=== PATIENT | female | born 1945 | race Caucasian/White ===

== ENCOUNTER 2016-11-29 09:34 | Inpatient (IN) | payer MEDICARE ==
[~2016-11-29] VITALS: Ht 167.6 cm; Wt 89.4 kg
[~2016-11-29 09:34] MED LIST: COUM2.5T17 PO; PERCOCET PO; TYLE325T5 PO; no home meds
[2016-11-29] MEDS ORDERED: ALEV220C2 PO (09:41)
[2016-11-29] MEDS ORDERED: METOPROLOL TART 25 MG TABLET PO ONE (10:00)
[2016-11-29] MEDS: METOPROLOL 5 MG/5 ML VIAL IV SCH ×16 (10:18→11:30)
[2016-11-29 10:41] LABS: BASO % 0.5 % (0.0-1.0); EOS # 0.1 K/mm3 (0.0-0.50); EOS % 1.5 % (0.0-3.0); LARGE UNSTAINED CELL # 0.1 K/mm3 (0.0-0.4); LARGE UNSTAINED CELL % 1.1 % (0.0-4.0); LYMPH # 0.9 K/mm3 (1.5-4.5); LYMPH % 9.3 % (24.0-44.0); MEAN CORPUSCULAR HEMOGLOBIN 31.5 pg (27.0-33.0); MEAN CORPUSCULAR HGB CONC 32.8 g/dl (32.0-36.5); MEAN CORPUSCULAR VOLUME 96.1 fl (80.0-96.0); MONO # 0.3 K/mm3 (0.0-0.8); MONO % 3.7 % (0.0-5.0); NEUTROPHILS # 7.5 K/mm3 (1.8-7.7); NEUTROPHILS % 83.8 % (36.0-66.0); PLATELET COUNT, AUTOMATED 219 k/mm3 (150-450); RED CELL DISTRIBUTION WIDTH 12.5 % (11.5-14.5)
[2016-11-29 11:08] LABS: ALBUMIN 3.1 GM/DL (3.2-5.2); ALBUMIN/GLOBULIN RATIO 0.97 (1.00-1.93); ALKALINE PHOSPHATASE 182 U/L (45-117); ALT/SGPT 37 U/L (12-78); ANION GAP 10 MEQ/L (8-16); AST/SGOT 20 U/L (15-37); BILIRUBIN,DIRECT 0.1 MG/DL (0.0-0.2); BILIRUBIN,TOTAL 0.6 MG/DL (0.2-1.0); BLOOD UREA NITROGEN 20 MG/DL (7-18); CALCIUM LEVEL 8.3 MG/DL (8.8-10.2); CARBON DIOXIDE LEVEL 24 MEQ/L (21-32); CHLORIDE LEVEL 108 MEQ/L (98-107); CREATININE FOR GFR 1.19 MG/DL (0.55-1.02); FREE T4 1.23 NG/DL (0.76-1.46); GLOMERULAR FILTRATION RATE 47.9 (>45); GLUCOSE, FASTING 118 MG/DL (80-110); POTASSIUM SERUM 4.3 MEQ/L (3.5-5.1); SODIUM LEVEL 142 MEQ/L (136-145); TOTAL PROTEIN 6.3 GM/DL (6.4-8.2)
[2016-11-29] MEDS ORDERED: NS 500 ML IV ONE ×2 (11:15→13:15)
--- NOTE | 2016-11-29 11:22 | REP ---
Clinical: chest pain. Comparison: 12/28/2013. Findings: The mediastinum and cardiac silhouette are stable and within normal limits for portable technique. The lung herrmann are clear without acute consolidation, effusion, or pneumothorax. Skeletal structures are intact. Impression: No acute cardiopulmonary process appreciated. Signed by Praveen Arroyo MD 11/29/2016 11:13 A
[2016-11-29 11:24] LABS: ERYTHROCYTE SEDIMENTATION RATE 24 mm/hr (0-30)
[2016-11-29] MEDS ORDERED: ISOVUE-370 76% 100ML VIAL (Q9967) As Ordered ONE (14:14)
[2016-11-29] MEDS ORDERED: ONDANSETRON 4MG/2ML VIAL (J2405) IV PRN (14:30)
[2016-11-29] MEDS ORDERED: BISACODYL 5 MG TAB PO PRN (14:30)
--- NOTE | 2016-11-29 15:15 | REP ---
Clinical: Atrial fibrillation and acute chest pain. Technique: Axial contrast enhanced images from the thoracic inlet to the upper abdomen using 100 ml Isovue 370 intravenous contrast material with coronal and sagittal re-formations. Findings: Satisfactory enhancement of the pulmonary vasculature is achieved and no filling defects are identified to suggest pulmonary embolus. Thoracic aorta is normal caliber without aneurysm or dissection. Heart and pericardium are normal. Lung herrmann demonstrate moderate emphysematous changes and chronic interstitial changes without focal consolidation, pleural effusion, pneumothorax, nodule or mass lesion. Tracheobronchial tree is patent. No adenopathy. Impression: No evidence for pulmonary embolus. Normal thoracic aorta. Moderate emphysematous and interstitial changes. No acute pleuroparenchymal process. Signed by Praveen Arroyo MD 11/29/2016 03:06 P
[2016-11-29 15:30] VITALS: BP 147/69
--- NOTE | 2016-11-29 17:26 | HPE ---
DATE OF ADMISSION: 11/29/2016 CHIEF COMPLAINT: 71-year-old female coming in complaining of "feeling not well. " HISTORY OF PRESENT ILLNESS: This is a 71-year-old female with no significant past medical history who resides at [facility] and does not see any imaging analyst, who presents complaining of feeling "not feeling well for a few days," who was out camping around [place]. Patient states that she had no acute precipitating factor such as fever, chills, cough, sputum production, abdominal pain, diarrhea , dysuria, chest pain, shortness of breath, nausea, vomiting, or dizziness that brought her into the emergency room. But, she did go camping and had not felt well, therefore came to the emergency room. She developed some nonblanching salmon color macule on her upper extremity prior to her camping but no acute finding but she came in because she did not feel well for a few days. She also informed me that she went camping due to a family member insisting on her going camping, but she was well enough to go camping, but generally did not feel completely well, therefore she came to the emergency room for further evaluation. In the emergency room, patient was noted to be in atrial fibrillation with heart rate of 137, received metoprolol IV in addition to by mouth 25 mg metoprolol. Her blood pressure became soft and systolic at 90, therefore patient is being admitted for further evaluation and treatment. Patient is currently asymptomatic. No chest pain, dizziness, or shortness of breath. Able to provide history and cooperated with physical examination without any difficulty. Patient does have some multiple nonblanching salmon colored skin patches discoloration on her upper extremity she states that has been occurring prior to her going camping as well. Patient again denies any medical history, did not even know that she was in atrial fibrillation until it was told to her by the emergency room staff. Patient also mentioned that she has very minimal pitting edema up to her ankle, worse throughout the day, but improves after elevating her foot and sleeping at night. Denies any calf pain. REVIEW OF SYSTEMS: Ten point review of systems is negative other than described in the history of present illness (HPI). PAST MEDICAL HISTORY: None. SURGICAL HISTORY: Includes knee surgery and hip surgery. SOCIAL HISTORY: Patient does smoke one pack a day and has been doing so for the past 50 years. Occasionally drinks wine and vodka on social occasions and during holidays, but not dependent on them. Denies any IV drug abuse. FAMILY MEDICAL HISTORY: Nonsignificant. ALLERGIES: Patient has no known drug allergies. MEDICATIONS: From home: - she takes Aleve 220 mg two tablets nightly as needed In terms of physical examination, I have asked the emergency room (ER) staff to obtain repeat vital signs as last blood pressure initially when she came in was 87/62 and the repeat was 90/58, heart rate was 90 and 94, saturating 95-94%. It seems like her blood pressure has improved to 118/56, but she does have a fever of 102.3, a heart rate of 88, respiratory rate of 18, and saturating at 96% on room air, but on my examination in the emergency room she did not feel as she had a significant fever of 102.3, I will verify with the ER staff regarding that temperature as patient was asymptomatic in terms of fever downstairs. HEENT: Normocephalic. No trauma. Inspection of the eyes, nose, and throat is within normal. Pupils equal, round, and reactive to light and accommodation. Mucous is moist. Neck is supple. CARDIAC: S1, S2, irregularly irregular. Pulses present. LUNGS: Equal air entry. Did not hear any wheezes, rales, or rhonchi. ABDOMEN: Soft, nontender. Bowel sounds present. LOWER EXTREMITIES: No significant pitting edema. Capillary refill present in all four extremities. SKIN: Is intact, warm to touch, afebrile. Upper extremities salmon-color macules. The patient is currently awake, alert and oriented times three. Cranial nerves grossly intact. Motor and sensory is intact. Normal mood and affect for current situation. DIAGNOSTIC STUDIES: Patient did get a CTA of the chest upon my request which showed no evidence for pulmonary embolus, normal thoracic aorta, moderate emphysematous and interstitial changes. No acute pleural parenchymal process. LABORATORY STUDIES: WBC, hemoglobin and hematocrit, and platelet count is within normal. Complete metabolic profile is within normal except for chloride at 108, BUN of 20, creatinine of 1.19, glucose is 118, calcium is 8.3, alkaline phosphatase is 182. Her lactic acid is 1.9. Cardiac enzymes have been within normal. C-reactive protein is elevated at 2.68. BNP is 152. Total protein is 6.3, albumin is 3.1. Free T4 is within normal, TSH is within normal. Coagulation studies: PTT is 22.4. Urinalysis is negative for a urinary tract infection, but did show 1+ protein and 4 red blood cell count. Lyme disease immunoglobulin is pending at this time. Blood culture times two is pending. Chest x-ray as per radiology showed no acute cardiopulmonary process. ASSESSMENT AND PLAN: This is a 71-year-old female with no significant past medical history who resides at [facility], denies of any cardiac history or a imaging analyst, who was well enough to go camping with family member, but did not feel well and noted a rash on her upper extremity prior to camping but subsequently became feeling unwell as she was camping, therefore came to the emergency room and was noted to have atrial fibrillation. 1. Atrial fibrillation. Patient will be monitored on telemetry. Will get serial cardiac enzymes. CTA of the chest was negative for pulmonary embolus. TSH within normal. Will obtain echocardiogram for further evaluation. CHADS2 score preliminary-nettles of zero but we will await for echocardiogram for further evaluation for any diagnosis of heart failure. Patient also requests that medication regarding anticoagulation therapy be limited to perhaps aspirin as patient is on Medicare. I have explained to the patient about the risk of transient ischemic attack (TIA) or stroke with comorbidities of atrial fibrillation. At this time we will rate control her as her heart rate tolerates , as her blood pressure did go down with a beta carolina that was given to her in the emergency room. Will utilize digoxin if necessary, give her IV fluid judiciously. Patient will speak to the [facility] hospitalist regarding anticoagulation therapy based on echocardiogram finding. 2. Upper extremity nonblanching skin finding. [place]-colored macules. Chronic prior to her camping exposure. Lyme study is still pending. Patient does have a fever of 102 noted in the emergency room, but on my examination she did not have any signs of fever, did not feel warm. Will verify with the staff in the emergency room regarding the temperature of 102. If it is truly indeed a correct temperature reading, will continue to workup for infectious process and treat symptoms and provide supportive care. 3. Soft blood pressure. Improved with IV fluids. Judicious use of metoprolol. Try to rate control with beta carolina or Cardizem. If blood pressure is effected, may need digoxin. Cardiology consult as needed and [facility]. 4. Renal insufficiency. IV fluids and continue to monitor. 5. Smoking cessation. Nicotine patch offered. 6. Deep venous thrombosis (DVT) prophylaxis. Addendum: Spoke to staff and was informed repeat temperature 98.9. But in light of reviewing the chart there is a new documentation of temperature 100.1 prior to 102.3 that was not there before. Spoke to on-coming Hospitalist, infectious disease workup including tic mirna illness is being evaluated. JAN
[2016-11-29] MEDS: NS 1,000 ML IV SCH (17:38)
[2016-11-29] MEDS: NICOTINE 14 MG/24 HR TRANSDERMAL TD SCH (18:49)
[2016-11-29] MEDS: ACETAMINOPHEN TAB 650MG DOSE (2X325MG) PO PRN (19:50)
[2016-11-29 20:00] VITALS: BP 137/61
[2016-11-29] MEDS: HEPARIN SOD (PORCINE) 5000 UNITS/ML VIAL SC SCH (22:00)
[2016-11-29 23:59] VITALS: BP 119/56
[2016-11-30 04:00] VITALS: BP 120/57
[2016-11-30] MEDS: HEPARIN SOD (PORCINE) 5000 UNITS/ML VIAL SC SCH ×3 (05:34→21:46)
[2016-11-30] MEDS: NS 1,000 ML IV SCH ×2 (05:34→18:05)
[2016-11-30 06:13] LABS: MEAN CORPUSCULAR HEMOGLOBIN 31.4 pg (27.0-33.0); MEAN CORPUSCULAR HGB CONC 32.5 g/dl (32.0-36.5); MEAN CORPUSCULAR VOLUME 96.7 fl (80.0-96.0); RED CELL DISTRIBUTION WIDTH 12.5 % (11.5-14.5); WHITE BLOOD COUNT 6.1 K/mm3 (4.0-10.0)
[2016-11-30 06:38] LABS: CALCIUM LEVEL 7.9 MG/DL (8.8-10.2); CREATININE FOR GFR 1.04 MG/DL (0.55-1.02); GLOMERULAR FILTRATION RATE 55.9 (>45)
--- NOTE | 2016-11-30 07:23 | ECGEPIP ---
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
[2016-11-30 08:00] VITALS: BP 137/65
[2016-11-30] MEDS: NICOTINE 14 MG/24 HR TRANSDERMAL TD SCH (08:21)
[2016-11-30] MEDS: ACETAMINOPHEN TAB 650MG DOSE (2X325MG) PO PRN ×3 (08:22→21:47)
[2016-11-30 12:00] VITALS: BP 140/66
[2016-11-30 14:25] LABS: COMPLEMENT C4 20.4 MG/DL (10-40)
[2016-11-30 16:00] VITALS: BP 142/82
[2016-11-30 20:00] VITALS: BP 145/62
--- NOTE | 2016-11-30 20:58 | IPN ---
DATE: 11/30/2016 SUBJECTIVE: The patient seen and examined in the room today. The patient is still having intermittent fevers. According to the patient, since two weeks ago, the patient started having shivering chills and since a few days ago she started developing a generalized rash. Never had a similar episode in the past. VITAL SIGNS: Temperature is 97.3, pulse is 95, respirations 18, blood pressure 137/65, pulse oximetry 94% on room air. GENERAL: No sign of acute distress. Alert and oriented times three. HEENT: Normocephalic, atraumatic. Extraocular movements grossly intact. CARDIOVASCULAR: Irregularly irregular heart rate in satisfactory range. RESPIRATORY: Clear to auscultation bilaterally. ABDOMEN: Soft, nontender, nondistended. Bowel sounds present. No rebound. No guarding. EXTREMITIES: No edema, no sign of cyanosis. DERMATOLOGICAL: The patient has scattered macular rash, nonpruritic. No active drainage and the rash distributes throughout her whole body. LABORATORY DATA: WBC is 6.1, hemoglobin 11.8, hematocrit 36.3, platelet count is 193. Sodium 144, potassium 4, chloride is 113. Carbon dioxide 33, BUN 17, creatinine 1.04. GFR is 55.9. Fasting glucose 116. Calcium 7.9. Total CK 36. Troponin I is less than 0.02. C-reactive protein is 2.62. ASSESSMENT AND PLAN: 1. Atrial fibrillation. The patient's current heart rate is in the satisfactory range. The patient does not have any past medical history. Cardiac echogram was ordered. CHADS2 score is 0. Will continue to monitor patient. 2. Generalized macular rash. Etiology unknown at this moment. Rule out any possible infectious cause and also workup for autoimmune disease, and also vasculitis workup. I will consult the infectious disease specialist, Dr. Joy. 3. Acute kidney injury. The patient has a creatinine of 1 in 2014. On admission, the patient had a creatinine of 1.19. With medical management, the patient's creatinine is improving, almost back to her baseline. 4. Intermittent fever and chills. Will try to rule out any possible infectious causes. Surprisingly, the patient's white count and erythrocyte sedimentation rate are within normal range. 5. History of smoking. CT of the chest did not show any significant findings. The patient is on nicotine patch. 6. Deep venous thrombosis (DVT) prophylaxis. The patient is on heparin.
[2016-11-30] MEDS: zolPIDEM TARTRATE 5 MG TAB PO PRN (21:46)
[2016-11-30] MEDS: DOXYCYCLINE HYCLATE 100 MG TAB PO SCH (21:46)
--- NOTE | 2016-11-30 22:35 | CR ---
DATE: 11/30/2016 Asked to consult by Dr. Bruce for evaluation of fever and rash. HISTORY OF PRESENT ILLNESS: Mrs. Betts is a pleasant 71-year-old female who had not been feeling well for about 3 weeks prior to admission. She had been camping at [facility] wit her family for 1 day and was supposed to be going to [place] next week but was not feeling well. She was having a fever and just had myalgias, not feeling herself, so she went to an Urgent Care where she was noted to be in atrial fibrillation with rapid ventricular response and, therefore, was sent to the emergency room by ambulance. The patient states she had no cough, no nausea, vomiting or diarrhea. No abdominal pain, no chest pain or shortness of breath. She had no palpitations. She had been 3 weeks ago cleaning brush at her daughter's house in [place] and she lives in [facility]. She denied having a tick bite but had noticed that she has had nonblanching macular rash on upper and lower extremities. In the emergency room, she was in atrial fibrillation with a heart rate of 140. She was given IV metoprolol, and she was spiking fevers up to 103. She feels well other than malaise. She states she has chronic low back pain, which is unchanged. She has no arthritis or arthralgias. Past medical history of tobacco abuse and chronic low back pain for which she takes Aleve. PAST SURGICAL HISTORY: Knee surgery and right hip open reduction internal fixation in 2013 playing football with her grandson. SOCIAL HISTORY: She smokes a pack of cigarettes a day for the past 50 years. She drinks socially wine or vodka but not regularly. No IV drug use. She lives in an adjoining apartment to her daughter and son-in-law and they have a dog. She does not have dogs. They live in [place], and she is outdoors, does help in outdoor activities. ALLERGIES: No known drug allergies. MEDICATIONS: - Aleve at home Currently on: - Ambien 2.5 mg by mouth nightly as needed - heparin subcutaneously 5000 units every 8 hours - ibuprofen 400 mg every 6 hours as needed - Tylenol as needed - Zofran 4 mg IV every 6 hours as needed - nicotine patch one patch daily. LABORATORY DATA: White count was normal, currently 6.1, hemoglobin 11.8, hematocrit 36.3, platelets 193. ESR 22. Sodium 144, potassium 4, chloride 113, bicarbonate 23, BUN 17, creatinine 1.04, glucose 116, calcium 7.9, CPK 36, troponin less than 0.02 times three and CRP 2.62. Lyme serology is pending. OSBALDO, ANCA are pending. Complement levels C4 is 20.4. Hepatitis A, B C, HIV are pending. AST 20, ALT 37, alkaline phosphatase 182. IMAGING STUDIES: CT angiogram showed no evidence of pulmonary embolism (PE), normal thoracic aorta, moderate emphysema and interstitial changes. No acute process. Chest x-ray showed no acute infiltrate. On physical exam, temperature is 100.8, pulse 93, respirations 18, blood pressure 142/82, oxygen saturation 96% on room. Maximum temperature (T max) was yesterday of 103.1. Heart: Normal S1, S2, irregular with no murmurs, rubs or gallops. Lungs are clear. No wheezes, rales or rhonchi. Abdomen: Obese, soft, nontender. No hepatosplenomegaly. Back: No costovertebral angle tenderness or lumbosacral tenderness. Extremities: No clubbing, cyanosis or edema. No calf tenderness. Skin: Has multiple blanching macular rash, some are confluent, upper chest, abdomen, thighs and arms. She has a few petechial-looking rash on the left foot. Musculoskeletal: Normal range of motion. No acute synovitis. No joint tenderness. Normal range of motion knees and ankle. Neck is supple. No jugular venous distention (JVD). No carotid bruits with no stiffness. Oropharynx is clear with no thrush. Pupils equal and reactive, anicteric with no conjunctival lesions. IMPRESSION: This is a 71-year-old female who has not been feeling well for the past few weeks. She lives in [place] and had been clearing brush at her daughter's house 3 weeks ago. She has a fever, macular rash, which is suggestive of possible early disseminated Lyme disease and developed atrial fibrillation, probably triggered by a fever. She has no significant past medical history except for tobacco abuse and chronic low back pain. The patient is clinically stable. PLAN: Lyme serology has been obtained. Hepatitis A, B, C and HIV has been obtained, although she does not have abnormal liver function tests. Suggest starting doxycycline 100 mg by mouth twice a day while waiting for Lyme serology. If the patient is stable from a cardiac standpoint, she could be discharged to be followed up as an outpatient with doxycycline for a total of 3 weeks. The patient also was advised side effect of nausea, vomiting and severe photosensitivity, especially if she is planning to go camping to avoid being in direct sun, being outside between 12 and 3 and to use sunscreen, [id number]. MTDD
[2016-11-30 23:59] VITALS: BP 137/62
[2016-12-01] VITALS (7 sets, daily range): BP systolic 102–140; BP diastolic 54–86
[2016-12-01] MEDS: ACETAMINOPHEN TAB 650MG DOSE (2X325MG) PO PRN (02:01)
[2016-12-01] MEDS: IBUPROFEN 400 MG TAB PO PRN ×3 (05:02→21:13)
[2016-12-01] MEDS: HEPARIN SOD (PORCINE) 5000 UNITS/ML VIAL SC SCH ×3 (05:57→21:13)
[2016-12-01] MEDS: NS 1,000 ML IV SCH (06:19)
[2016-12-01 06:20] LABS: MEAN CORPUSCULAR HEMOGLOBIN 31.6 pg (27.0-33.0); MEAN CORPUSCULAR VOLUME 95.6 fl (80.0-96.0); RED CELL DISTRIBUTION WIDTH 12.6 % (11.5-14.5); WHITE BLOOD COUNT 9.7 K/mm3 (4.0-10.0)
[2016-12-01 06:30] LABS: CALCIUM LEVEL 7.8 MG/DL (8.8-10.2); CREATININE FOR GFR 1.01 MG/DL (0.55-1.02); GLOMERULAR FILTRATION RATE 57.9 (>45)
[2016-12-01 08:06] LABS: Lyme Disease IgG Ab 18 kDa Ban Present (.); Lyme Disease IgG Ab 23 kDa Ban Present (.); Lyme Disease IgG Ab 28 kDa Ban Absent (.); Lyme Disease IgG Ab 30 kDa Ban Absent (.); Lyme Disease IgG Ab 39 kDa Ban Present (.); Lyme Disease IgG Ab 41 kDa Ban Present (.); Lyme Disease IgG Ab 45 kDa Ban Present (.); Lyme Disease IgG Ab 58 kDa Ban Present (.); Lyme Disease IgG Ab 66 kDa Ban Absent (.); Lyme Disease IgG Ab 93 kDa Ban Absent (.); Lyme Disease IgG West Blot Int Positive (.); Lyme Disease IgG/IgM Antibodie 1.94 ISR (0.00-0.90); Lyme Disease IgM Ab 23 kDa Ban Present (.); Lyme Disease IgM Ab 39 kDa Ban Absent (.); Lyme Disease IgM Ab 41 kDa Ban Present (.); Lyme Disease IgM Ab Quantitati 5.65 index (0.00-0.79); Lyme Disease IgM West Blot Int Positive (.)
[2016-12-01] MEDS: NICOTINE 14 MG/24 HR TRANSDERMAL TD SCH (08:20)
[2016-12-01] MEDS: DOXYCYCLINE HYCLATE 100 MG TAB PO SCH ×2 (08:20→21:11)
[2016-12-01] MEDS ORDERED: METOPROLOL TART 12.5 MG PER 1/2 TAB PO SCH (09:00)
--- NOTE | 2016-12-01 17:59 | IPN ---
DATE: 12/01/2016 SUBJECTIVE: The patient is seen and examined in the room today. The patient still has intermittent fevers. The patient stated the rash has been persistent. No change in size. The patient still complains of palpitations. OBJECTIVE: VITAL SIGNS: Temperature is 98.7, pulse is 110, respirations 18, blood pressure 102/56, pulse oximetry is 96% in room air. GENERAL: No sign of acute distress. Alert and oriented times three. HEENT: Normocephalic, atraumatic. Extraocular motor grossly intact. CARDIOVASCULAR: Irregularly irregular with a heart rate greater than 100. LUNGS: Clear to auscultation bilaterally. ABDOMEN: Soft, nontender, nondistended. Bowel sounds present. No rebound, no guarding. DERMATOLOGICAL: Multiple scattered macular rash, nonpruritic, throughout her whole body and no active drainage. EXTREMITIES: No edema, no sign of cyanosis. LABORATORY DATA: WBC is 9.7, hemoglobin 11.5, hematocrit 34.9, platelet count is 187. Sodium is 141, potassium 4, chloride is 112, carbon dioxide 21, BUN 14, creatinine 1.01, GFR is 57.9, fasting glucose 135, calcium is 7.8. ASSESSMENT AND PLAN: 1. Atrial fibrillation. May be due to the patient's active Lyme disease infection. The patient has a heart rate persistently greater than 100. Will start metoprolol. Will adjust accordingly. The patient will continue to be monitored on telemetry. The patient's CHADS2 score is 0. 2. Generalized macular rash secondary to Lyme disease. The patient was started on doxycycline. Infectious disease specialist, Dr. Joy, has been consulted. Recommend a total of 21 days of doxycycline treatment. 3. Lyme disease. Titer came back positive. The patient is on doxycycline. 4. Acute kidney injury. Patient had a creatinine baseline of 1 in 2014. With fluid support, the patient's renal function is improving. 5. History of smoking. CT of the chest is negative. The patient is on a nicotine patch. 6. Deep vein thrombosis (DVT) prophylaxis. Heparin. MTDD
--- NOTE | 2016-12-01 19:07 | ECHO ---
DATE OF PROCEDURE: 12/01/2016 AGE: 71 GENDER: Female HEIGHT: 66 inches WEIGHT: 190 pounds BODY SURFACE AREA: 1.96 m2 PATIENT LOCATION: Inpatient, PCU, room 3219 REFERRING PHYSICIAN: Sara Brownlee MD INDICATION: Dependent edema. Atrial fibrillation. 2-D MEASUREMENTS: RV: 3.6 cm LV: 4.0 cm Septum: 1.1 cm Posterior wall: 1.1 cm Aortic root: 2.8 cm LA: 4.5 cm LVEF: 65 - 70% DOPPLER MEASUREMENTS: AV: 1.3 m/s LVOT: 0.82 m/s LVOT diameter: 1.8 cm MV-E: 120 Early mitral deceleration time: 151 m/s E prime: 8.6, E/E prime ratio: 14.5 PV: 0.8 m/s Pulmonary artery acceleration time: 102 ms RVSP: 49 mmHg IVC: 2.2 cm COMMENTS: Underlying atrial fibrillation with somewhat rapid ventricular response averaging 120 beats per minute (BPM). No intraventricular conduction disturbance. Mild to moderately dilated left atrium, but normal left ventricular size. Normal right atrium and right ventricular sizes but at least borderline increased inferior vena caval diameter. Left ventricle (LV) wall thickness was normal. On real-time imaging from the parasternal and apical projections left and right ventricular systolic function was hyperkinetic. Mildly thickened mitral annulus, but normal leaflet thickness and excursion with no posterior systolic buckling. Three equal size aortic cusps with mildly thickened cusp edges, but adequate cusp separation. Normal aortic root size. No apparent intracardiac mass or pericardial effusion. Color flow Doppler study taken from the parasternal and apical projections showed mild mitral and tricuspid, but no aortic insufficiency. Guided continuous wave Doppler of her aortic valve showed a normal peak systolic velocity against LV outflow tract obstruction. Pulsed and continuous wave Doppler of her LV inflow tract taken from the apical four-chamber projection showed normal diastolic filling velocities against mitral stenosis. There was only early diastolic/passive filling pattern as we would expect with atrial fibrillation. Using pulsed and tissue Doppler of her mitral annulus, her current estimated mean left atrial pressure was only mildly increased. Pulsed and continuous wave Doppler of her pulmonary trunk showed a normal peak systolic velocity against right ventricle (RV) outflow tract obstruction. Her pulmonary artery acceleration time was abbreviated suggestive of at least a mildly increased pulmonary vascular resistance. Guided continuous wave Doppler of her tricuspid valve allowed our estimation of her right ventricular systolic pressure (moderately increased). Her inferior vena cava was upper limits of normal to slightly dilated with reduced respiratory collapse in keeping with an elevated central venous pressure. CONCLUSIONS: Normal left ventricular size, wall thickness and hyperkinetic wall motion. Mild-moderately dilated left atrium with Doppler evidence to suggest at least mildly elevated mean left atrial pressure. Normal right ventricular size and contraction with Doppler evidence of moderate pulmonary hypertension. Normal right atrial size, but at least borderline increased inferior vena cava (IVC) diameter with reduced respiratory collapse suggestive of an elevated central venous pressure. Aortic valvular sclerosis without functional abnormality. Mild mitral annular calcification with mild insufficiency.
[2016-12-01] MEDS: zolPIDEM TARTRATE 5 MG TAB PO PRN (21:10)
[2016-12-01] MEDS: METOPROLOL TART 25 MG TABLET PO SCH (21:11)
--- NOTE | 2016-12-01 22:38 | IPN ---
DATE: 12/01/2016 SUBJECTIVE: Aggie is doing better today. She feels a little more energized. She only complains of increasing low back pain. OBJECTIVE: VITAL SIGNS: She has had low-grade fever this morning 100.5, currently 99.8. Pulse 93, respirations 18, blood pressure 109/54, oxygen saturation 96% on room air. HEART: Normal S1, S2, regular. LUNGS: Clear. No wheezes, rales or rhonchi. ABDOMEN: Soft, nontender. BACK: Mild lumbosacral tenderness. EXTREMITIES: No edema. SKIN: Has a faint macular rash diffusely involving her upper back, her back, abdomen, and arms and legs, but it is less bright than yesterday. LABORATORY DATA: White count is 9.7, hemoglobin 11.5, hematocrit 34.2, platelets 187. ESR 22. Sodium 141, potassium 4, chloride 112, bicarb 21, BUN 14, creatinine 1, glucose 135, calcium 7.8. Lyme serology was positive with positive IgM 5.65, 2/3 positive band, and 6/10 positive IgG band. Hepatitis A, B, C and HIV were all negative. IMPRESSION: 1. 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 The patient is doing slightly better with doxycycline. She will be treated for total of 21 days. The patient was advised to avoid being out in the sun as there is risk of photosensitivity. To use SPF 50 while camping. 2. Atrial fibrillation on metoprolol 25 mg by mouth twice a day 3. Low back pain on ibuprofen 400 mg every six hours as needed. Plan : provide the patient with heating pad and encourage ambulation. I would suggest discontinuing intravenous (IV) fluids and encourage ambulation today. Discussed also smoking cessation and avoidance of alcohol with antibiotics. Continue doxycycline total of 21 days. MTDD
[2016-12-02 04:00] VITALS: BP 127/68
[2016-12-02 05:10] LABS: MEAN CORPUSCULAR HEMOGLOBIN 31.9 pg (27.0-33.0); MEAN CORPUSCULAR VOLUME 96.6 fl (80.0-96.0); RED CELL DISTRIBUTION WIDTH 12.7 % (11.5-14.5); WHITE BLOOD COUNT 4.5 K/mm3 (4.0-10.0)
[2016-12-02 05:20] LABS: ANION GAP 7 MEQ/L (8-16); BLOOD UREA NITROGEN 19 MG/DL (7-18); CARBON DIOXIDE LEVEL 23 MEQ/L (21-32); CHLORIDE LEVEL 112 MEQ/L (98-107); CREATININE FOR GFR 0.93 MG/DL (0.55-1.02); GLOMERULAR FILTRATION RATE > 60.0 (>45); GLUCOSE, FASTING 116 MG/DL (80-110); POTASSIUM SERUM 4.2 MEQ/L (3.5-5.1); SODIUM LEVEL 142 MEQ/L (136-145)
[2016-12-02] MEDS: HEPARIN SOD (PORCINE) 5000 UNITS/ML VIAL SC SCH (05:48)
[2016-12-02 08:00] VITALS: BP 148/65
[2016-12-02] MEDS ORDERED: METO25TA4 PO (08:01)
[2016-12-02] MEDS ORDERED: DOXY100T2 PO (08:01)
[2016-12-02] MEDS: METOPROLOL TART 25 MG TABLET PO SCH (08:39)
[2016-12-02] MEDS: DOXYCYCLINE HYCLATE 100 MG TAB PO SCH (08:39)
[2016-12-02] MEDS: NICOTINE 14 MG/24 HR TRANSDERMAL TD SCH (08:40)
--- NOTE | 2016-12-02 15:31 | DSES ---
DATE OF ADMISSION: 11/29/2016 DATE OF DISCHARGE: 12/02/2016 PRIMARY CARE PROVIDER: In [place] CONSULTANTS: Infectious disease specialist, Dr. Carmela Joy. PROCEDURES: None. COMPLICATIONS: None. ADMISSION/DISCHARGE DIAGNOSES: 1. Lyme disease. 2. New-onset atrial fibrillation. 3. Generalized macular rash from Lyme disease. 4. Acute kidney injury. 5. History of tobacco abuse. HOSPITALIZATION COURSE: Patient is a 71-year-old female who presented to [facility] on 11/29/2016 for generalized discomfort. During admission process, patient was found to have atrial fibrillation with a CHADS2 score of 0. Patient was admitted to the progressive care unit (PCU) for cardiac telemetry. Labs and cultures were obtained. Patient was noted to have intermittent fever with normal erythrocyte sedimentation rate (ESR) and white blood cells (WBC). Later patient was started on doxycycline for patient's Lyme disease. Patient was also started on metoprolol for atrial fibrillation rate control. On 12/02/2016, patient was determined medically stable for discharge with recommendation to finish a total of 21-day course of doxycycline for the patient's Lyme disease. Patient is recommended to followup with primary care provider in [place] in 1-2 weeks. OBJECTIVE: VITAL SIGNS: Temperature is 99.2, pulse is 99, respiratory rate 18, blood pressure 148/65, pulse oximetry 93% in room air. LABORATORY DATA: WBC 4.5, hemoglobin 11.1, hematocrit 33.5, platelet count is 180, ESR is 22. Sodium is 143, potassium 4.2, chloride 112, carbon dioxide 23, BUN 19, creatinine 0.93, GFR greater than 60, fasting glucose is 116, calcium is 8. Immunology: ANCA pending. Lyme disease titer positive. Hepatitis panel negative. Microbiology: Blood cultures negative after 72 hours times two sets. IMAGING STUDIES: Chest x-ray showed no acute cardiopulmonary process. CT angiogram of the chest showed no evidence of pulmonary embolism (PE). Normal thoracic aorta. Moderate emphysematous and interstitial changes. No acute pleural parenchymal process. DISCHARGE MEDICATIONS: - doxycycline 100 mg by mouth twice a day for 19 more days - metoprolol titrate 25 mg by mouth twice a day - Aleve 440 mg by mouth as needed DISCHARGE INSTRUCTIONS: Discontinue line. Discharge home. Activity as tolerated. Diet as tolerated. Patient should finish a total of 21-day course of doxycycline for Lyme disease treatment. Patient is recommended to followup with primary care provider in 1-2 weeks. DISCHARGE TIME; Greater than 30 minutes. DISCHARGE CONDITION: Stable.
[2016-12-05 00:06] LABS: SJOGREN'S ANTI SS-A <0.2 AI (0.0-0.9); SJOGREN'S ANTI SS-B <0.2 AI (0.0-0.9)
== END 2016-12-02 09:23 | disposition home or self-care (01) | DRG 868 ==
LOC: M ED 09:34 → EDBD 09:34 → M ED INP 16:14 → M PCU 17:25
PROVIDERS: ADMIT Internal Medicine; ATTEND Internal Medicine
DX: A69.20 Lyme disease, unspecified (principal); N17.9 Acute kidney failure, unspecified; I48.91 Unspecified atrial fibrillation; F17.210 Nicotine dependence, cigarettes, uncomplicated; M54.5 Low back pain; E66.9 Obesity, unspecified

== ENCOUNTER → 2017-01-04 | Outpatient (REF) | payer MEDICARE ==
[~2017-01-04] MED LIST changes: +ALEV220C2 PO; +DOXY100T2 PO; +METO25TA4 PO
[2017-01-04 17:21] LABS: ALBUMIN 3.6 GM/DL (3.2-5.2); ALBUMIN/GLOBULIN RATIO 1.13 (1.00-1.93); BILIRUBIN,TOTAL 0.4 MG/DL (0.2-1.0); CALCIUM LEVEL 8.7 MG/DL (8.8-10.2); CREATININE FOR GFR 1.07 MG/DL (0.55-1.02); GLOMERULAR FILTRATION RATE 54.1 (>45); POTASSIUM SERUM 3.7 MEQ/L (3.5-5.1); TOTAL PROTEIN 6.8 GM/DL (6.4-8.2)
[2017-01-04 17:40] LABS: BASO # 0.1 K/mm3 (0.0-0.2); BASO % 0.9 % (0.0-1.0); EOS # 0.2 K/mm3 (0.0-0.50); EOS % 3.6 % (0.0-3.0); LARGE UNSTAINED CELL # 0.1 K/mm3 (0.0-0.4); LYMPH # 1.8 K/mm3 (1.5-4.5); LYMPH % 26.3 % (24.0-44.0); MEAN CORPUSCULAR HGB CONC 32.6 g/dl (32.0-36.5); MEAN CORPUSCULAR VOLUME 95.1 fl (80.0-96.0); MONO # 0.4 K/mm3 (0.0-0.8); NEUTROPHILS # 4.2 K/mm3 (1.8-7.7); NEUTROPHILS % 62.2 % (36.0-66.0); PLATELET COUNT, AUTOMATED 155 k/mm3 (150-450); WHITE BLOOD COUNT 6.7 K/mm3 (4.0-10.0)
== END ==
LOC: M SFHCCAPE 08:05
PROVIDERS: ATTEND Physician Assistant
DX: E78.1 Pure hyperglyceridemia (principal); R53.83 Other fatigue

== ENCOUNTER → 2017-06-06 | Outpatient (REF) | payer MEDICARE ==
[2017-06-06 18:38] LABS: ALBUMIN 3.7 GM/DL (3.2-5.2); ALBUMIN/GLOBULIN RATIO 1.19 (1.00-1.93); ALKALINE PHOSPHATASE 133 U/L (45-117); ALT/SGPT 38 U/L (12-78); ANION GAP 6 MEQ/L (8-16); AST/SGOT 26 U/L (7-37); BILIRUBIN,TOTAL 0.5 MG/DL (0.2-1.0); BLOOD UREA NITROGEN 26 MG/DL (7-18); CALCIUM LEVEL 8.9 MG/DL (8.8-10.2); CARBON DIOXIDE LEVEL 30 MEQ/L (21-32); CHLORIDE LEVEL 104 MEQ/L (98-107); CHOLESTEROL LEVEL 187 MG/DL (<200); CHOLESTEROL RISK RATIO 4.675 (<5); CREATININE FOR GFR 1.17 MG/DL (0.55-1.02); GLOMERULAR FILTRATION RATE 48.7 (>39); GLUCOSE, FASTING 107 MG/DL (83-110); HDL CHOLESTEROL 40 MG/DL (>40); LDL CHOLESTEROL 72.8 MG/DL (<100); NON-HDL-C 147 MG/DL; POTASSIUM SERUM 4.4 MEQ/L (3.5-5.1); SODIUM LEVEL 140 MEQ/L (136-145); TOTAL PROTEIN 6.8 GM/DL (6.4-8.2); TRIGLYCERIDES LEVEL 371 MG/DL (<150)
[2017-06-06 18:41] LABS: ESTIMATED AVERAGE GLUCOSE 120 MG/DL (60-110); HEMOGLOBIN A1c 5.8 %
[2017-06-06 19:11] LABS: BASO # 0.1 10^3/uL (0.0-0.2); BASO % 0.7 % (0.0-1.0); EOS # 0.3 10^3/uL (0.0-0.50); EOS % 3.8 % (0.0-3.0); HEMATOCRIT 48.3 % (36.0-47.0); HEMOGLOBIN 15.5 g/dl (12.0-16.0); IMMATURE GRANULOCYTE % 0.4 % (0-0); LYMPH # 1.8 10^3/uL (1.5-4.5); LYMPH % 24.3 % (24.0-44.0); MEAN CORPUSCULAR HEMOGLOBIN 30.9 pg (27.0-33.0); MEAN CORPUSCULAR HGB CONC 32.1 g/dl (32.0-36.5); MEAN CORPUSCULAR VOLUME 96.2 fl (80.0-96.0); MONO # 0.5 10^3/uL (0.0-0.8); NEUTROPHILS # 4.7 10^3/uL (1.8-7.7); NEUTROPHILS % 63.8 % (36.0-66.0); PLATELET COUNT, AUTOMATED 177 10^3/uL (150-450); RED BLOOD COUNT 5.02 10^6/uL (4.00-5.40); RED CELL DISTRIBUTION WIDTH 12.3 % (11.5-14.5); WHITE BLOOD COUNT 7.3 10^3/uL (4.0-10.0)
== END ==
LOC: M SFHCCAPE 08:42
DX: E78.1 Pure hyperglyceridemia (principal); R73.01 Impaired fasting glucose
CPT/HCPCS: 80053

== ENCOUNTER → 2018-03-27 | Outpatient (REF) | payer MEDICARE ==
[2018-03-27 12:42] LABS: BASO % 0.5 % (0.0-1.0); EOS # 0.2 10^3/uL (0.0-0.50); EOS % 3.8 % (0.0-3.0); HEMATOCRIT 45.1 % (36.0-47.0); HEMOGLOBIN 14.3 g/dl (12.0-15.5); IMMATURE GRANULOCYTE % 0.3 % (0-3.0); LYMPH # 1.7 10^3/uL (1.5-4.5); LYMPH % 26.7 % (24.0-44.0); MEAN CORPUSCULAR HEMOGLOBIN 30.5 pg (27.0-33.0); MEAN CORPUSCULAR HGB CONC 31.7 g/dl (32.0-36.5); MEAN CORPUSCULAR VOLUME 96.2 fl (80.0-96.0); MONO # 0.5 10^3/uL (0.0-0.8); MONO % 8.2 % (0.0-5.0); NEUTROPHILS # 3.9 10^3/uL (1.8-7.7); NEUTROPHILS % 60.5 % (36.0-66.0); PLATELET COUNT, AUTOMATED 195 10^3/uL (150-450); RED BLOOD COUNT 4.69 10^6/uL (4.00-5.40); WHITE BLOOD COUNT 6.4 10^3/uL (4.0-10.0)
[2018-03-27 12:59] LABS: ESTIMATED AVERAGE GLUCOSE 126 MG/DL (60-110)
[2018-03-27 13:13] LABS: ALBUMIN 3.2 GM/DL (3.2-5.2); ALBUMIN/GLOBULIN RATIO 1.03 (1.00-1.93); ALKALINE PHOSPHATASE 130 U/L (45-117); ALT/SGPT 42 U/L (12-78); ANION GAP 11 MEQ/L (8-16); AST/SGOT 26 U/L (7-37); BILIRUBIN,TOTAL 0.4 MG/DL (0.2-1.0); BLOOD UREA NITROGEN 21 MG/DL (7-18); CALCIUM LEVEL 8.5 MG/DL (8.8-10.2); CARBON DIOXIDE LEVEL 25 MEQ/L (21-32); CHLORIDE LEVEL 107 MEQ/L (98-107); CHOLESTEROL LEVEL 178 MG/DL (<200); CHOLESTEROL RISK RATIO 5.235 (<5); CREATININE FOR GFR 1.33 MG/DL (0.55-1.30); GLUCOSE, FASTING 109 MG/DL (70-100); HDL CHOLESTEROL 34 MG/DL (>40); LDL CHOLESTEROL 84 MG/DL (<100); NON-HDL-C 144 MG/DL; POTASSIUM SERUM 4.6 MEQ/L (3.5-5.1); SODIUM LEVEL 143 MEQ/L (136-145); TOTAL 25(OH) VITAMIN D 24.8 NG/ML (30.0-100.0); TOTAL PROTEIN 6.3 GM/DL (6.4-8.2); TRIGLYCERIDES LEVEL 298 MG/DL (<150)
== END ==
LOC: M SFHCCAPE 08:34
DX: D58.2 Other hemoglobinopathies (principal); E78.1 Pure hyperglyceridemia; R73.09 Other abnormal glucose; I10 Essential (primary) hypertension; E55.9 Vitamin D deficiency, unspecified
CPT/HCPCS: 84443

== ENCOUNTER → 2018-04-12 | Outpatient (CLI) | payer MEDICARE | LOC: M RAD 12:46 | DX: I70.8 Atherosclerosis of other arteries (principal); R42 Dizziness and giddiness | CPT/HCPCS: 93880 ==

== ENCOUNTER → 2018-05-17 | Outpatient (REF) | payer MEDICARE | LOC: M SFHCLERA 16:19 | DX: L72.0 Epidermal cyst (principal) | CPT/HCPCS: 87186 ==

== ENCOUNTER → 2018-06-03 | Outpatient (CLI) | payer MEDICARE ==
[2018-06-03 11:37] LABS: INR 1.59; PROTHROMBIN TIME 19.2 SECONDS (12.1-14.4)
== END ==
LOC: M LRY 08:10
PROVIDERS: ATTEND Internal Medicine Cardiovascular Disease
DX: I48.0 Paroxysmal atrial fibrillation (principal); Z79.01 Long term (current) use of anticoagulants

== ENCOUNTER → 2018-06-10 | Outpatient (CLI) | payer MEDICARE ==
[2018-06-10 12:03] LABS: INR 2.51; PROTHROMBIN TIME 27.6 SECONDS (12.1-14.4)
== END ==
LOC: M LRY 08:13
PROVIDERS: ATTEND Physician Assistant
DX: Z51.81 Encounter for therapeutic drug level monitoring (principal); Z79.01 Long term (current) use of anticoagulants; I48.0 Paroxysmal atrial fibrillation

== ENCOUNTER → 2018-08-05 | Outpatient (CLI) | payer MEDICARE ==
--- NOTE | 2018-08-05 12:09 | REP ---
LEFT KNEE, FIVE VIEWS: HISTORY: Pain. There is no acute fracture or dislocation. There is mild narrowing of the medial knee joint space and patellofemoral joint space. There is minimal narrowing of the lateral knee joint space. An osteophyte is present on the tibia. IMPRESSION: Degenerative change as described above. Electronically Signed by Paulie Escalona MD 08/05/2018 12:10 P
== END ==
LOC: M LRY 10:40
PROVIDERS: ATTEND Nurse Practitioner Family
DX: M17.12 Unilateral primary osteoarthritis, left knee (principal); M25.762 Osteophyte, left knee; M25.562 Pain in left knee
CPT/HCPCS: 73564; G0463

== ENCOUNTER → 2018-08-30 | Outpatient (CLI) | payer MEDICARE ==
--- NOTE | 2018-08-30 10:21 | REP ---
CT STUDY OF THE LEFT KNEE WITHOUT CONTRAST: HISTORY: Left knee pain and swelling. History of surgery. COMPARISON RADIOGRAPHS: August 05, 2018. CT FINDINGS: There is diffuse osteopenia. No focal bony destructive lesion is seen. There is mild osteoarthritic spurring of the lateral surface of the patella and the superior articular margin of patella. There is also some mild spurring at the superior pole patella at the quadriceps tendon insertion. There is mild medial and lateral tibial femoral spurring. No joint space narrowing is seen. There is a small quantity of joint effusion and a very small sliver of Lomeli's cyst is seen in the posterior popliteal soft tissues. No other soft tissue abnormality is appreciated. Minimal vascular calcification is noted. There is a normal fabella posterolaterally. There is no evidence to suggest loose body. There is a fairly large posteromedial spur extending from the tibial plateau. IMPRESSION: Osteoarthritis. Diffuse osteoporosis. Small joint effusion and Lomeli's cyst. Nonarticular patellar spurring at the quadriceps tendon insertion. No acute bony abnormality. Electronically Signed by Wilber Marshall MD 08/30/2018 01:32 P
== END ==
LOC: M RAD 07:25
PROVIDERS: ATTEND Nurse Practitioner Family
DX: M17.12 Unilateral primary osteoarthritis, left knee (principal); M81.0 Age-related osteoporosis without current pathological fracture; M71.22 Synovial cyst of popliteal space [Baker], left knee

== ENCOUNTER 2018-09-27 18:08 | Observation (INO) | payer MEDICARE ==
[~2018-09-27] VITALS: Ht 167.6 cm; Wt 96.2 kg
[2018-09-27] MEDS ORDERED: CHLO125TA PO (18:44)
[2018-09-27] MEDS ORDERED: ELIQ5TAB PO (18:44)
[2018-09-27] MEDS ORDERED: losartan PO (18:44)
[2018-09-27] MEDS ORDERED: tumeric PO (18:45)
[2018-09-27 19:21] LABS: BASO # 0.1 10^3/uL (0.0-0.2); BASO % 0.6 % (0.0-1.0); EOS # 0.3 10^3/uL (0.0-0.50); EOS % 3.1 % (0.0-3.0); HEMATOCRIT 27.4 % (36.0-47.0); HEMOGLOBIN 8.3 g/dl (12.0-15.5); LYMPH % 23.9 % (24.0-44.0); MEAN CORPUSCULAR HGB CONC 30.3 g/dl (32.0-36.5); MEAN CORPUSCULAR VOLUME 89.3 fl (80.0-96.0); MONO # 0.6 10^3/uL (0.0-0.8); MONO % 7.2 % (0.0-5.0); NEUTROPHILS # 5.5 10^3/uL (1.8-7.7); NEUTROPHILS % 64.8 % (36.0-66.0); PLATELET COUNT, AUTOMATED 225 10^3/uL (150-450); RED BLOOD COUNT 3.07 10^6/uL (4.00-5.40); WHITE BLOOD COUNT 8.5 10^3/uL (4.0-10.0)
[2018-09-27 19:42] LABS: CALCIUM LEVEL 8.1 MG/DL (8.8-10.2); CREATININE FOR GFR 1.36 MG/DL (0.55-1.30); GLOMERULAR FILTRATION RATE 40.8 (>39); POTASSIUM SERUM 3.9 MEQ/L (3.5-5.1)
--- NOTE | 2018-09-27 19:58 | ECGEPIP ---
Stationary ECG Study [facility] - ED Test Date: 2018-09-27 Pat Name: TEMITOPE BRANTLEY Department: Room: - Gender: F [employer] T[employer]: : 1945 Requested By: Jennifer Osorio Order Number: [id number] Reading MD: Jennifer Osorio Measurements Intervals [employer] Rate: 82 P: IA: 0 QRS: 6 QRSD: 92 T: 24 QT: 363 QTc: 424 Interpretive Statements ATRIAL FIBRILLATION ABNORMAL RHYTHM ECG LOW QRS VOLTAGE LIMB LEADS 11/29/[address] T WAVE CHANGES Electronically Signed On 09-27-2018 19:58:22 EDT by Jennifer Osorio
--- NOTE | 2018-09-27 21:18 | REP ---
CHEST, SINGLE VIEW: Single view of the chest is performed. There is no acute infiltrate. There is mild discoid atelectasis in the lung bases. Heart is normal in size and the mediastinal silhouette is unremarkable. IMPRESSION: No acute infiltrate. Electronically Signed by Ishaan Sevilla MD 09/28/2018 03:10 P
[2018-09-27] MEDS ORDERED: D5W/LR 1,000 ML IV SCH (21:30)
[2018-09-27] MEDS ORDERED: GOLYTELY SOLN 4000 ML BTL PO ONE (21:30)
[2018-09-27] MEDS ORDERED: MOM 30ML SUSPENSION UDC PO PRN (21:30)
[2018-09-27] MEDS ORDERED: MAALOX 30 ML SUSP *UDC PO PRN (21:30)
[2018-09-27] MEDS ORDERED: ACETAMINOPHEN TAB 650MG DOSE (2X325MG) PO PRN (21:30)
[2018-09-27] MEDS ORDERED: LOSA25TA14 PO (21:41)
[2018-09-27] MEDS ORDERED: TURM500C PO (21:41)
--- NOTE | 2018-09-27 22:05 | HPEPDOC ---
General Date of Admission September 27, 2018 at 18:09 Attending Physician: A Chief Complaint The patient is a 73-year-old female admitted with a reason for visit of Symptomatic Anemia. Source: Patient, Family Exam Limitations: No limitations Timing/Duration: This morning (around 1AM) Associated Symptoms: Shortness of breath History of Present Illness 73 yo female with PMH of A fib and lyme disease presents to [facility] due to private vehicle with SOB that started since 09/27/18 around 1AM. She reported that she feels SOB that started when she was sitting down after walking back from the restroom. She reported that her SOB is better when she sat up, and that she was able to sleep but required a few pillows. Reported increased b/l ankle swelling. Denies any melena, hematochezia, nausea, vomiting, lightheadedness, dizziness, cough, extremity weakness, numbness, tingling, or loss of sensation. Reported no other symptoms as mentioned pos above. She never had any colonoscopy before, reported no family hx of colon CA. Home Medications Scheduled Apixaban (Eliquis) 5 Mg Tablet, 5 MG PO BID, (Reported) Chlorthalidone (Chlorthalidone) 25 Mg Tablet, 12.5 MG PO DAILY, (Reported) Losartan Potassium (Losartan Potassium) 25 Mg Tablet, 12.5 MG PO QHS, (Reported) Turmeric/Turmeric Root Extract (Turmeric 500 mg Capsule) 1 Each Capsule, 500 MG PO QHS, (Reported) Allergies Coded Allergies: No Known Allergies (Unverified , 09/27/18) Past Medical History Medical History A. fib Lyme disease diagnosed about 3 yrs ago-fatigue Broken right hip Moderate pulmonary hypertension on prior echo Low back pain Surgical History Left knee torn meniscus 2007 Right hip broken screws, plate, colton 2013 Family History Significant Family History: Cancer (MOther-throat Ca and uterine CA), Heart disease (Father-CAD) Social History * Smoker: former Smoker (quit in October 2017) A-FIB/CHADSVASC A-FIB History Current/History of A-Fib/PAF?: Yes Review of Systems Constitutional: Reports: Fatigue; Denies: Chills, Fever, Weight Loss Pulmonary: Reports: Dyspnea; Denies: Pleuritic Chest Pain Cardiovascular: Reports: Orthopnea, Edema (in bilateral ankle); Denies: Chest Pain, Palpitations Gastrointestinal: Denies: Nausea, Vomiting, Abdominal Pain, Diarrhea, Constipation, Melena, Hematochezia Neurological: Denies: Weakness, Numbness, Incoordination Physical Examination General Exam: Positive: Alert, Cooperative, No Acute Distress, Mild Distress Eye Exam: Positive: Conjunctiva & lids normal; Negative: Sclera icteric, Ptosis ENT Exam: Positive: Atraumatic Neck Exam: Positive: Supple; Negative: JVD Chest Exam: Positive: Clear to auscultation, Normal air movement, Diminished (mildly diminished breath sounds b/l); Negative: Rales, Rhonchi, Wheezing Heart Exam: Positive: Rate Normal, Regular Rhythm, Normal S1, Normal S2; Negative: Murmurs Telemetry: Positive: No significant arrhythmia, Sinus; Negative: Atrial fibrillation Abdomen Exam: Positive: Normal bowel sounds, Other (no distention or guarding); Negative: Tenderness Extremity Exam: Positive: Edema (non-piutting edema in bilateral ankle and minimal edema in b/l calves), Normal pulses (b/l radial pulses present); Negative: Cyanosis Skin Exam: Positive: Nl turgor and temperature Neuro Exam: Positive: Normal Speech Psych Exam: Positive: Mental status NL, Mood NL, Memory Intact, Oriented x 3 Vital Signs Vital Signs Date Time Temp Pulse Resp B/P (MAP) Pulse Ox O2 Delivery O2 Flow Rate FiO2 09/27/18 21:23 90 18 95 Room Air 09/27/18 21:15 124/63 (83) 09/27/18 18:09 97.3 Laboratory Data Labs 24H Laboratory Tests 2 09/27/18 19:12: Immature Granulocyte % (Auto) 0.4, White Blood Count 8.5, Red Blood Count 3.07L, Hemoglobin 8.3L, Hematocrit 27.4L, Mean Corpuscular Volume 89.3, Mean Corpuscular Hemoglobin 27.0, Mean Corpuscular Hemoglobin Concent 30.3L, Red Cell Distribution Width 12.8, Platelet Count 225, Neutrophils (%) (Auto) 64.8, Lymphocytes (%) (Auto) 23.9L, Monocytes (%) (Auto) 7.2H, Eosinophils (%) (Auto) 3.1H, Basophils (%) (Auto) 0.6, Neutrophils # (Auto) 5.5, Lymphocytes # (Auto) 2.0, Monocytes # (Auto) 0.6, Eosinophils # (Auto) 0.3, Basophils # (Auto) 0.1, Reticulocyte # (auto) 70.5, Nucleated Red Blood Cells % (auto) 0.0, Percent Reticulocyte Count 2.3H, Reticulocyte Hemoglobin Equivalent 24.1, Anion Gap 5L, Glomerular Filtration Rate 40.8, Blood Urea Nitrogen 32H, Creatinine 1.36H, Sodium Level 144, Potassium Level 3.9, Chloride Level 114H, Carbon Dioxide Level 25, Calcium Level 8.1L, BB-Wep-O-Type Natriuretic Peptide 150H CBC/BMP Laboratory Tests 09/27/18 19:12 Red Blood Count 3.07 L, Mean Corpuscular Volume 89.3, Mean Corpuscular Hemoglobin 27.0, Mean Corpuscular Hemoglobin Concent 30.3 L, Red Cell Distribution Width 12.8, Neutrophils (%) (Auto) 64.8, Lymphocytes (%) (Auto) 23.9 L, Monocytes (%) (Auto) 7.2 H, Eosinophils (%) (Auto) 3.1 H, Basophils (%) (Auto) 0.6, Neutrophils # (Auto) 5.5, Lymphocytes # (Auto) 2.0, Monocytes # (Auto) 0.6, Eosinophils # (Auto) 0.3, Basophils # (Auto) 0.1, Calcium Level 8.1 L Problems (1) Symptomatic anemia Status: Acute Discussed With: Business Education Instructor Problem Text: SOB with good ox sat on RA. Normal respiratory rate. Hg 8.3 with baseline 14.5. Reported no melena, hematochezia, or abnormal uterine spotting/bleeding. Never had colonoscopy done and denied any hemorrhoids or FX of colon CA. Pt's home med Eliquis will be held. Discussed with Dr. Zendejas, pt will likely be receiving colonoscopy Sunday vs outpt endoscopy; GI consult ordered. Will have the pt on clear liquid diet now and follow up with H&H Q6h until 09/28 afternoon. Iron study, PT/PTT, and folate/B12 level ordered. IV protonix. Discussed with pt to let us know if symptoms worsen; vital signs as scheduled. . (2) Atrial fibrillation Status: Chronic Response to Treatment: Stable, Controlled Problem Text: medical hx of adrinaa billie currently in sinus rhythm. Hold home med eliquis as pt has symptomatic anemia and pending r/o GI bleed. Pt currently reports no palpitation/chest pain. Cont pt on tele monitoring and vital signs as scheduled Plan / VTE VTE Prophylaxis Ordered?: Yes (TEDS and SCD) VTE Exclusion Mechanical Proph: Low Risk for VTE VTE Exclusion Pharmacological: At Low Risk for VTE INDRA STEINER DO September 27, 2018 22:05
[2018-09-27 22:30] VITALS: BP 135/62
[2018-09-27 23:08] LABS: HEMATOCRIT 27.3 % (36.0-47.0); HEMOGLOBIN 8.3 g/dl (12.0-15.5)
[2018-09-27 23:21] LABS: INR 1.12; PARTIAL THROMBOPLASTIN TIME 23.2 SECONDS (25.4-37.6); PROTHROMBIN TIME 14.6 SECONDS (12.1-14.4)
[2018-09-28 02:00] VITALS: BP 130/62
[2018-09-28] MEDS: PANTOPRAZOLE 40MG INJ (PROTONIX) (C9113) IV SCH ×3 (02:08→21:20)
[2018-09-28 03:46] LABS: HEMATOCRIT 25.5 % (36.0-47.0); HEMOGLOBIN 7.7 g/dl (12.0-15.5)
[2018-09-28 04:14] LABS: CALCIUM LEVEL 7.6 MG/DL (8.8-10.2); CREATININE FOR GFR 1.24 MG/DL (0.55-1.30); GLOMERULAR FILTRATION RATE 45.4 (>39); POTASSIUM SERUM 3.7 MEQ/L (3.5-5.1)
[2018-09-28 06:00] VITALS: BP 136/76
[2018-09-28] MEDS: FERROUS SULFATE 325MG TAB PO SCH ×3 (08:57→21:20)
[2018-09-28 09:28] LABS: HEMATOCRIT 25.5 % (36.0-47.0); HEMOGLOBIN 7.7 g/dl (12.0-15.5)
[2018-09-28 10:00] VITALS: BP 130/63
[2018-09-28] MEDS ORDERED: GOLYTELY SOLN 4000 ML BTL PO ONE (10:00)
--- NOTE | 2018-09-28 12:47 | IPNPDOC ---
Date Seen The patient was seen on 09/28/18. Progress Note SUBJECTIVE: Patient reports her shortness of breath has improved she still has not feels lightheaded she is not back to her baseline yet however. She denies palpitations chest pressure nausea vomiting or diarrhea fevers or chills OBJECTIVE PHYSICAL EXAMINATION: VITAL SIGNS: Please see below. GENERAL: Morbidly obese female lying in bed she is awake alert 3 no acute distress she appears mildly pale HEENT: Conjunctival pallor cranial nerves II through XII grossly intact is moist mucous membranes CARDIOVASCULAR: S1-S2 irregular noticed heart sounds appreciated she is not tachycardic. RESPIRATORY: Clear to auscultation bilaterally. ABDOMINAL: Obese bowel sounds present abdomen soft and nontender throughout EXTREMITIES: cyanosis or edema LABORATORY DATA, IMAGING STUDIES, MICROBIOLOGY: Please see below. DVT prophylaxis ordered?: Teds and sequentials no pharmacological agents in the setting of possible bleeding ASSESSMENT AND PLAN: This is a 73-year-old female with symptomatic anemia. PROBLEMS: 1. Symptomatic anemia: Patient complains of dyspnea on exertion and lightheade dness upon standing she is known to have a hemoglobin at her baseline of approximately 14 today she is 7.7 she's been consented for blood products transfusion of 2 units of PRBCs of rectal emergency room was reportedly negative given that she is chronically integrated with [facility] was denies any other source of bleeding or vaginal bleeding dietary stools extremities no suspicion for a chronic slow microscopic bleed source in her GI tract. I have restarted Dr. Zendejas of gastroenterology who completed an upper endoscopy and lower colonoscopy tomorrow, the patient has never previously had a colonoscopy. Continue to monitor H&H closely I'll discontinue further IV fluids, continue with ferrous sulfate certainly an element of iron deficiency anemia 2. Hypertension: She is normotensive at this time, we'll continue to hold her losartan and chlorthalidone and monitor restart as needed. 3. Atrial fibrillation: Anticoagulated with eliquis continue to monitor she is not requiring any rate controlling agents. DISPOSITION: Pending clinical improvement and stabilization of hemoglobin and GI evaluation. VS, I&O, 24H, Fishbone Vital Signs/I&O Vital Signs Date Time Temp Pulse Resp B/P (MAP) Pulse Ox O2 Delivery O2 Flow Rate FiO2 09/28/18 10:00 97.9 64 17 130/63 (85) 100 09/27/18 22:15 Room Air I&O- Last 24 Hours up to 6 AM 09/28/18 06:00 Intake Total 885 ml Output Total 550 ml Balance 335 ml Laboratory Data 24H LABS Laboratory Tests 2 09/27/18 19:12: Immature Granulocyte % (Auto) 0.4, White Blood Count 8.5, Red Blood Count 3.07L, Hemoglobin 8.3L, Hematocrit 27.4L, Mean Corpuscular Volume 89.3, Mean Corpuscular Hemoglobin 27.0, Mean Corpuscular Hemoglobin Concent 30.3L, Red Cell Distribution Width 12.8, Platelet Count 225, Neutrophils (%) (Auto) 64.8, Lymphocytes (%) (Auto) 23.9L, Monocytes (%) (Auto) 7.2H, Eosinophils (%) (Auto) 3.1H, Basophils (%) (Auto) 0.6, Neutrophils # (Auto) 5.5, Lymphocytes # (Auto) 2.0, Monocytes # (Auto) 0.6, Eosinophils # (Auto) 0.3, Basophils # (Auto) 0.1, Reticulocyte # (auto) 70.5, Nucleated Red Blood Cells % (auto) 0.0, Percent Reticulocyte Count 2.3H, Reticulocyte Hemoglobin Equivalent 24.1, Anion Gap 5L, Glomerular Filtration Rate 40.8, Blood Urea Nitrogen 32H, Creatinine 1.36H, Sodium Level 144, Potassium Level 3.9, Chloride Level 114H, Carbon Dioxide Level 25, Calcium Level 8.1L, Iron Level 23L, Total Iron Binding Capacity 456H, Transferrin % Saturation 5.0L, HM-Mhn-O-Type Natriuretic Peptide 150H, Vitamin B12 Level 248 09/27/18 22:56: Prothrombin Time 14.6H, Prothromb Time International Ratio 1.12, Activated Partial Thromboplast Time 23.2L 09/28/18 03:35: Anion Gap 5L, Glomerular Filtration Rate 45.4, Blood Urea Nitrogen 31H, Creatinine 1.24, Sodium Level 143, Potassium Level 3.7, Chloride Level 114H, Carbon Dioxide Level 24, Calcium Level 7.6L CBC/BMP Laboratory Tests 09/27/18 19:12 Red Blood Count 3.07 L, Mean Corpuscular Volume 89.3, Mean Corpuscular Hemoglobin 27.0, Mean Corpuscular Hemoglobin Concent 30.3 L, Red Cell Distribution Width 12.8, Neutrophils (%) (Auto) 64.8, Lymphocytes (%) (Auto) 23.9 L, Monocytes (%) (Auto) 7.2 H, Eosinophils (%) (Auto) 3.1 H, Basophils (%) (Auto) 0.6, Neutrophils # (Auto) 5.5, Lymphocytes # (Auto) 2.0, Monocytes # (Auto) 0.6, Eosinophils # (Auto) 0.3, Basophils # (Auto) 0.1, Calcium Level 8.1 L 09/27/18 22:56 09/28/18 03:35 Calcium Level 7.6 L 09/28/18 09:05 ORTIZ CUTRIS MD September 28, 2018 12:47
[2018-09-28 18:00] VITALS: BP 162/61
[2018-09-28 18:39] LABS: HEMATOCRIT 33.9 % (36.0-47.0); HEMOGLOBIN 10.6 g/dl (12.0-15.5)
[2018-09-28 22:00] VITALS: BP 135/71
[2018-09-29 02:00] VITALS: BP 122/60
[2018-09-29 06:00] VITALS: BP 131/66
[2018-09-29 06:07] LABS: HEMATOCRIT 31.7 % (36.0-47.0); HEMOGLOBIN 9.8 g/dl (12.0-15.5); MEAN CORPUSCULAR HEMOGLOBIN 27.4 pg (27.0-33.0); MEAN CORPUSCULAR HGB CONC 30.9 g/dl (32.0-36.5); MEAN CORPUSCULAR VOLUME 88.5 fl (80.0-96.0); PLATELET COUNT, AUTOMATED 191 10^3/uL (150-450); RED BLOOD COUNT 3.58 10^6/uL (4.00-5.40); WHITE BLOOD COUNT 6.3 10^3/uL (4.0-10.0)
[2018-09-29 06:29] LABS: CALCIUM LEVEL 7.7 MG/DL (8.8-10.2); CREATININE FOR GFR 1.1 MG/DL (0.55-1.30); GLOMERULAR FILTRATION RATE 52.1 (>39)
[2018-09-29] MEDS ORDERED: PROPOFOL 200 MG/20 ML VIAL As Ordered ONE ×2 (08:47→08:50)
[2018-09-29] MEDS ORDERED: LIDOCAINE 2% INJ 100 MG/5 ML SDV (FOR ANES.) As Ordered ONE (08:47)
[2018-09-29 09:20] VITALS: BP 128/61
[2018-09-29] MEDS: PANTOPRAZOLE 40MG INJ (PROTONIX) (C9113) IV SCH (10:03)
[2018-09-29] MEDS: FERROUS SULFATE 325MG TAB PO SCH (10:03)
[2018-09-29] MEDS ORDERED: FERR325T18 PO (11:22)
--- NOTE | 2018-09-29 16:12 | CR ---
DATE OF CONSULTATION: 09/28/2018 A 73-year white female admitted to [facility] for apparent anemia of unknown etiology. The patient has multiple medical problems including atrial fibrillation for which she is on Eliquis. She apparently has had some shortness of breath starting approximately 24 hours prior to admission. Patient would feel fatigued and shortness of breath just walking to the bathroom. The patient denied any history of melena, hematochezia or bright blood per rectum. No apparent nausea, vomiting, lightheadedness or dizziness. No fainting episodes. Patient has never had these symptoms before. She apparently has never had any endoscopies and has no apparent family history for colon cancer. MEDICATIONS AT HOME: Include: - Eliquis - chlorthalidone - losartan - tumeric No known allergies. PAST MEDICAL HISTORY: Is as above. SOCIAL HISTORY: Patient is a former smoker, apparently quite 06/2017. FAMILY HISTORY: Mother had throat cancer and uterine cancer. Father had heart disease. [id number] review of systems is noncontributory to this consultation. PHYSICAL EXAMINATION: GENERAL: He is a well-developed, well-nourished, obese white female in no obvious acute distress. Appears stated age. CHEST: Clear. CARDIOVASCULAR EXAM: Showed an irregular rhythm. No murmurs or gallops. Normal physiological split. S1, S2. ABDOMEN: Soft, nontender. No masses, guarding, rebound, hepatosplenomegaly. Bowel sounds positive. LABORATORY STUDIES ON ADMISSION: Showed a white count of 8500, hemoglobin and hematocrit of 8.3 and 27.4. The patient's chemistry was normal. The patient has had a complete blood count (CBC) on 09/29/2018 which shows a count of 9.8 and 31.7. The patient's blood bank shows that she was given 2 units of packed cells. IMAGING STUDIES: Was a chest x-ray, which showed no acute infiltrate. Patient had a normal sized heart. ANALYSIS: Anemia of unknown etiology. The patient has been off her Eliquis. PLAN: Will be to do an upper and lower endoscopy to evaluate for possible sources of her anemia.
--- NOTE | 2018-09-30 08:38 | DSES ---
DATE OF ADMISSION: 09/27/2018 DATE OF DISCHARGE: 09/29/2018 DISCHARGE DIAGNOSIS: Symptomatic anemia secondary to gastrointestinal (GI) bleed. SECONDARY DIAGNOSES: Hypertension. Atrial fibrillation on anticoagulation. HOSPITAL COURSE: The patient is a 73-year-old female who presented for progressively worsening dyspnea on exertion, symptoms of orthostasis, and shortness of breath. She began to feel better after receiving some IV fluids and significantly improved following 2 units of PRBCs during this stay. She was seen and evaluated by Dr. Zendejas of gastroenterology who completed upper endoscopy and lower colonoscopy, the reports of which are currently pending, but I did review a verbal report from Dr. Zendejas who said she had one polyp and non bleeding AVMs in the cecum. We did discuss her care and agreed that she would be best served by continuing on Eliquis given that it is likely a very slow and chronic bleed. Occult stool for blood was negative during this stay. She will require close follow-up with her primary care physician and Dr. Perales with monitoring of her outpatient hemoglobin. Should it begin to dip down again, we may need further discussion for possibly holding anticoagulation. She tells me she previously tolerated Coumadin and she would consider going back to that as a potential alternative as well. SUBJECTIVE: The patient tells me that she is feeling well. She denies abdominal pain or dark tarry stools., OBJECTIVE: VITAL SIGNS: Temperature 97.3, pulse 75, respiratory rate 18, blood pressure 128/61, oxygen saturation 94% on room air. GENERAL: She is a pleasant, morbidly obese female lying in bed. She is accompanied by her daughter. The patient does not appear to be in any acute distress. HEENT: Cranial nerves II through XII are grossly intact. She has moist mucous membranes. No elevation of central venous pressure (CVP). CARDIOVASCULAR EXAM: S1 and S2 irregularly irregular. She is not tachycardic. RESPIRATORY EXAM: Exam is quite clear. ABDOMINAL EXAM: Grossly obese, but is soft and nontender. EXTREMITIES: No clubbing, cyanosis, or edema. LABORATORY STUDIES: WBC 6.3, hemoglobin 9.8, platelet count 191. Chemistry panel - sodium 144, potassium 4.0, chloride 114, bicarb 27, BUN 13, creatinine 1.1. INR 1.1. IMAGING: The patient did have a chest x-ray at the time of her admission, which revealed no acute infiltrates. She also had an upper endoscopy and lower colonoscopy, the reports of which are currently pending. ASSESSMENT/PLAN: 73-year-old female with symptomatic anemia secondary to gastrointestinal (GI) bleed, possibly secondary to slow polyp bleed versus AVM, bleeding intermittently. PROBLEMS: 1. Symptomatic anemia. She is status post 2 units of PRBC. She had good prompt resolution of her symptoms. Dr. Zendejas's help is greatly appreciated. We had a lengthy discussion regarding her care. We will continue her on Eliquis for the time being; however, she should have close outpatient monitoring of her hemoglobin through her primary care providers office or Dr. Perales's office and she should discuss further with Dr. Perales if she were to have a recurrence of her anemia for possible discontinuation of Eliquis. She tells me that she previously was tolerating Coumadin quite well and would consider going back to Coumadin. We suspect that she is having intermittent bleeding via one of her AVM or polyp. Being her hemoglobin and hematocrit is stable, she has a positive response to blood. Her symptoms have resolved. We started the patient on ferrous sulfate, which she will continue upon discharge. 2. Hypertension. She was normotensive during her stay. Upon discharge, she will be resuming her home chlorthalidone and losartan. 3. Atrial fibrillation. As outlined above, anticoagulated with Eliquis. She is not requiring any rate controlling agents. DISPOSITION: She is being discharged home to the care of her family. She is independent with activities of daily living. She is at her functional baseline. She should follow-up with her primary care physician in seven days and follow-up with Dr. Perales within one month. Follow-up with GI within one month. Her activity and diet are as prior to admission. She is to return to the ER if symptoms worsen. MEDICATIONS AT TIME OF DISCHARGE: - ferrous sulfate 325 mg three times a day - Eliquis 5 mg twice a day - chlorthalidone 12.5 mg daily - losartan 12.5 mg at bedtime - tumeric extract as per the patient 500 mg at bedtime 45 minutes was spent organizing disposition.
[2018-09-30 10:46] LABS: FOLATE 11.5 NG/ML
--- NOTE | 2018-10-02 07:30 | ROOR ---
Patient Name: Aggie Betts Procedure Date: 09/29/2018 8:14 AM Date of : 1945 Age: 73 Gender: Female Note Status: Finalized Procedure: Total Colonoscopy to Cecum + Cold Snare Polypectomy + Hemoclip Indications: Iron deficiency anemia Providers: John Zendejas MD Referring MD: 1. No Referring Physician 1. No Referring Physician, Admin. Requesting Provider: Medicines: Monitored Anesthesia Care Complications: No immediate complications. Procedure: Pre-Anesthesia Assessment: - The heart rate, respiratory rate, oxygen saturations, blood pressure, adequacy of pulmonary ventilation, and response to care were monitored throughout the procedure. The Colonoscope was introduced through the anus and advanced to the cecum, identified by appendiceal orifice and ileocecal valve. The colonoscopy was performed without difficulty. The patient tolerated the procedure well. The quality of the bowel preparation was good. Findings: The perianal and digital rectal examinations were normal. Non-bleeding internal hemorrhoids were found during retroflexion. The hemorrhoids were small and Grade I (internal hemorrhoids that do not prolapse). Scattered small-mouthed diverticula were found in the recto-sigmoid colon, sigmoid colon and descending colon. A small polyp was found in the cecum. The polyp was sessile. The polyp was removed with a cold snare. Resection and retrieval were complete. To prevent bleeding after the polypectomy, one hemostatic clip was successfully placed (MR conditional). There was no bleeding at the end of the procedure. A few small angioectasias without bleeding were found in the cecum. The exam was otherwise without abnormality on direct and retroflexion views. Impression: - Non-bleeding internal hemorrhoids. - Diverticulosis in the recto-sigmoid colon, in the sigmoid colon and in the descending colon. - One small polyp in the cecum, removed with a cold snare. Resected and retrieved. Clip (MR conditional) was placed. - A few non-bleeding colonic angioectasias. - The examination was otherwise normal on direct and retroflexion views. - The exam was otherwise normal to the cecum. Recommendation: - Patient has a contact number available for emergencies. The signs and symptoms of potential delayed complications were discussed with the patient. Return to normal activities tomorrow. Written discharge instructions were provided to the patient. - Resume regular diet. - Continue present medications. - Return patient to hospital see for ongoing care. - Repeat colonoscopy for surveillance based on pathology results. - The findings and recommendations were discussed with the patient's family. John Zendejas MD John Zendejas MD 10/02/2018 7:30:11 AM Electronically signed by John Zendejas MD Number of Addenda: 0 Note Initiated On: 09/29/2018 8:14 AM Estimated Blood Loss: Estimated blood loss: none.
== END 2018-09-29 12:45 | disposition home or self-care (01) ==
LOC: M ED 18:08 → M ED INP 18:09 → M MSPAV 22:35
PROVIDERS: ADMIT Internal Medicine; ATTEND Internal Medicine
DX: D50.9 Iron deficiency anemia, unspecified (principal); K92.2 Gastrointestinal hemorrhage, unspecified; K64.0 First degree hemorrhoids; D12.0 Benign neoplasm of cecum; K55.20 Angiodysplasia of colon without hemorrhage; K57.30 Diverticulosis of large intestine without perforation or abscess without bleeding; I10 Essential (primary) hypertension; I48.2 Chronic atrial fibrillation; Z79.01 Long term (current) use of anticoagulants; Z79.899 Other long term (current) drug therapy; Z87.891 Personal history of nicotine dependence; E66.01 Morbid (severe) obesity due to excess calories
CPT/HCPCS: 36415; 36430; 45385; 71045; 80048; 82607; 82746; 83550; 83880; 85014; 85018; 85025; 85027; 85046; 85610; 85730; 86850; 86900; 86901; 86920; 88305; 93005; 93041; 94760; 96361; 96375; 96376; 99285; C9113; G0378; P9016

== ENCOUNTER → 2018-10-07 | Outpatient (REF) | payer MEDICARE ==
[~2018-10-07] MED LIST changes: +ATIV1TAB10 PO; +CHLO125TA PO; +ELIQ5TAB PO; +FERR325T18 PO; +LOSA25TA14 PO; +TURM500C PO; +[UNRECOGNIZED DRUG - REMARK]; +losartan PO; +tumeric PO
[2018-10-07 12:18] LABS: BASO # 0.1 10^3/uL (0.0-0.2); BASO % 0.7 % (0.0-1.0); EOS # 0.3 10^3/uL (0.0-0.50); EOS % 3.5 % (0.0-3.0); HEMATOCRIT 37.5 % (36.0-47.0); HEMOGLOBIN 11.4 g/dl (12.0-15.5); LYMPH # 1.5 10^3/uL (1.5-4.5); LYMPH % 19.8 % (24.0-44.0); MEAN CORPUSCULAR HEMOGLOBIN 27.7 pg (27.0-33.0); MEAN CORPUSCULAR HGB CONC 30.4 g/dl (32.0-36.5); MEAN CORPUSCULAR VOLUME 91.2 fl (80.0-96.0); MONO # 0.6 10^3/uL (0.0-0.8); MONO % 8.2 % (0.0-5.0); NEUTROPHILS # 4.9 10^3/uL (1.8-7.7); NEUTROPHILS % 67.3 % (36.0-66.0); PLATELET COUNT, AUTOMATED 210 10^3/uL (150-450); RED BLOOD COUNT 4.11 10^6/uL (4.00-5.40); WHITE BLOOD COUNT 7.3 10^3/uL (4.0-10.0)
== END ==
LOC: M SFHCLERA 08:12
PROVIDERS: ATTEND Nurse Practitioner Family
DX: D62 Acute posthemorrhagic anemia (principal)

== ENCOUNTER 2018-10-11 09:06 | Emergency (ER) | payer MEDICARE ==
[~2018-10-11] VITALS: Ht 167.6 cm; Wt 95.9 kg
[~2018-10-11 09:06] MED LIST changes: -ATIV1TAB10 PO; -[UNRECOGNIZED DRUG - REMARK]
[2018-10-11] MEDS ORDERED: LORazepam 2 MG/ML VIAL (J2060) IV STA (09:55)
[2018-10-11 10:22] LABS: BASO # 0.1 10^3/uL (0.0-0.2); BASO % 0.7 % (0.0-1.0); EOS # 0.2 10^3/uL (0.0-0.50); EOS % 2.2 % (0.0-3.0); HEMATOCRIT 40.4 % (36.0-47.0); HEMOGLOBIN 12.7 g/dl (12.0-15.5); LYMPH # 1.7 10^3/uL (1.5-4.5); LYMPH % 19.7 % (24.0-44.0); MEAN CORPUSCULAR HEMOGLOBIN 28.3 pg (27.0-33.0); MEAN CORPUSCULAR HGB CONC 31.4 g/dl (32.0-36.5); MEAN CORPUSCULAR VOLUME 90.2 fl (80.0-96.0); MONO # 0.6 10^3/uL (0.0-0.8); MONO % 7.4 % (0.0-5.0); NEUTROPHILS # 5.9 10^3/uL (1.8-7.7); NEUTROPHILS % 69.4 % (36.0-66.0); PLATELET COUNT, AUTOMATED 258 10^3/uL (150-450); RED BLOOD COUNT 4.48 10^6/uL (4.00-5.40); WHITE BLOOD COUNT 8.5 10^3/uL (4.0-10.0)
[2018-10-11 10:45] LABS: VENOUS BASE EXCESS -1.2 (-2.0-2.0); VENOUS HCO3 24.9 MEQ/L (23.0-27.0); VENOUS O2 SATURATION 83.4 % (60.0-80.0); VENOUS PARTIAL PRESSURE CO2 46.7 mmHg (38.0-50.0); VENOUS PARTIAL PRESSURE O2 51.7 mmHg (30.0-50.0); VENOUS PH 7.344 UNITS (7.330-7.430); VENOUS STANDARD HCO3 23.2 MEQ/L; VENOUS TOTAL CO2 26.3 MEQ/L (24.0-28.0)
--- NOTE | 2018-10-11 10:49 | REP ---
Portable chest x-ray: Single view. History: Dyspnea and cough. Comparison study: September 27, 2018. Findings: EKG monitoring electrodes overlie the chest. Heart size is borderline unchanged. Pulmonary vasculature is not increased. There are old healed rib fractures on the right. There is slight pleural angle blunting on the left. Pulmonary vasculature is not increased. No infiltrate is seen. Impression: Borderline heart size. Slight pleural angle blunting on the left. Otherwise no acute disease. Electronically Signed by Wilber Marshall MD 10/11/2018 06:22 P
[2018-10-11 11:00] LABS: INR 1.15; PROTHROMBIN TIME 14.9 SECONDS (12.1-14.4)
[2018-10-11 11:29] LABS: ALBUMIN 3.4 GM/DL (3.2-5.2); ALT/SGPT 50 U/L (12-78); BILIRUBIN,DIRECT < 0.1 MG/DL (0.0-0.2); BILIRUBIN,TOTAL 0.3 MG/DL (0.2-1.0); BLOOD UREA NITROGEN 27 MG/DL (7-18); CALCIUM LEVEL 8.7 MG/DL (8.8-10.2); CARBON DIOXIDE LEVEL 25 MEQ/L (21-32); CHLORIDE LEVEL 107 MEQ/L (98-107); CPK CREATINE PHOSPHOKINASE 48 U/L (26-192); CREATININE FOR GFR 1.19 MG/DL (0.55-1.30); GLOMERULAR FILTRATION RATE 47.6 (>39); GLUCOSE, FASTING 112 MG/DL (70-100); MB/CK RELATIVE INDEX 3.33 (< OR =4); NT-PRO BNP 101 PG/ML (<125); POTASSIUM SERUM 4.5 MEQ/L (3.5-5.1); SODIUM LEVEL 140 MEQ/L (136-145); TOTAL PROTEIN 6.8 GM/DL (6.4-8.2); TROPONIN I < 0.02 NG/ML (< 0.10)
[2018-10-11] MEDS ORDERED: NS 1,000 ML IV ONE ×2 (11:30→12:45)
[2018-10-11] MEDS ORDERED: ISOVUE-370 76% 100ML VIAL (Q9967) As Ordered ONE (11:43)
--- NOTE | 2018-10-11 13:07 | REP ---
CT pulmonary angiogram: With IV contrast. History: Shortness of breath. Comparison studies: Comparison CT pulmonary angiogram is from November 29, 2016. Contrast dose: 75 mL of Isovue [address] technique: Helical scanning is acquired and overlapping 1.5 mm and contiguous 3 mm axial images are reformatted. In addition, maximum intensity projection and multiplanar re-formation images are generated in sagittal and coronal imaging projections. CT pulmonary angiographic findings: There is good opacification in the pulmonary arterial tree. There is no CT evidence of pulmonary embolism. Thoracic aorta enhances homogeneously and remains normal in course and caliber. Mild vascular calcification is observed in the great vessels as before. There is no evidence of pleural or pericardial effusion. No hilar or mediastinal mass or adenopathy is observed. There are emphysematous changes in the upper lobes, right a little more so than left. This it is unchanged. No pulmonary nodule is appreciated. There is some discoid atelectatic changes in the left lower lobe and lingula at the left lung base. These are mild. No infiltrate is appreciated. There is diffuse fatty infiltration of the liver which appears to be a new finding from the prior study. No adrenal lesion is seen. Bone window settings show no acute bony abnormality. Impression: No CT evidence of pulmonary embolus. Mild discoid atelectatic changes left base. Otherwise no acute disease. Diffuse mild to moderate fatty infiltration of the liver. Electronically Signed by Wilber Marshall MD 10/11/2018 06:27 P
[2018-10-11] MEDS ORDERED: ATIV1TAB10 PO (13:34)
[2018-10-11] MEDS ORDERED: [UNRECOGNIZED DRUG - REMARK] (13:48)
[2018-10-11 15:04] LABS: CPK CREATINE PHOSPHOKINASE 53 U/L (26-192); MB/CK RELATIVE INDEX 2.64 (< OR =4); TROPONIN I < 0.02 NG/ML (< 0.10)
[2018-10-11 15:45] VITALS: BP 106/57
--- NOTE | 2018-10-12 17:34 | ECGEPIP ---
Stationary ECG Study [facility] - ED Test Date: 2018-10-11 Pat Name: TEMITOPE BRANTLEY Department: Room: - Gender: F In File Operator: ct : 1945 Requested By: Lashell Bull Order Number: [id number] Reading MD: Lashell Bull Measurements Intervals [place] Rate: 77 P: 261 GA: 140 QRS: 18 QRSD: 88 T: 18 QT: 371 QTc: 421 Interpretive Statements JUNCTIONAL RHYTHM ABNORMAL RHYTHM ECG Electronically Signed On 10-12-2018 17:33:56 EDT by Lashell Bull
== END 2018-10-11 15:58 | disposition home or self-care (01) ==
LOC: M ED 09:06
DX: R06.00 Dyspnea, unspecified (principal); F41.9 Anxiety disorder, unspecified; I49.8 Other specified cardiac arrhythmias; R94.31 Abnormal electrocardiogram [ECG] [EKG]; I48.91 Unspecified atrial fibrillation; I10 Essential (primary) hypertension; J44.9 Chronic obstructive pulmonary disease, unspecified; Z87.891 Personal history of nicotine dependence; Z79.01 Long term (current) use of anticoagulants; Z79.899 Other long term (current) drug therapy
CPT/HCPCS: 36415; 71045; 71275; 80048; 80076; 82550; 82553; 82803; 83605; 83880; 84443; 84484; 85025; 85610; 87040; 87486; 87581; 87633; 87798; 93005; 93041; 96361; 96374; 99285; J2060; Q9967

== ENCOUNTER → 2018-10-24 | Outpatient (REF) | payer MEDICARE ==
[~2018-10-24] MED LIST changes: +ATIV1TAB10 PO; +[UNRECOGNIZED DRUG - REMARK]
[2018-10-24 17:16] LABS: ALBUMIN 3.5 GM/DL (3.2-5.2); BILIRUBIN,TOTAL 0.4 MG/DL (0.2-1.0); CALCIUM LEVEL 9.5 MG/DL (8.8-10.2); CREATININE FOR GFR 1.23 MG/DL (0.55-1.30); GLOMERULAR FILTRATION RATE 45.8 (>39); PERCENT SATURATION 18.6 % (13.2-45.0); POTASSIUM SERUM 4.1 MEQ/L (3.5-5.1); TOTAL PROTEIN 6.2 GM/DL (6.4-8.2)
[2018-10-24 17:29] LABS: BASO # 0.1 10^3/uL (0.0-0.2); BASO % 0.5 % (0.0-1.0); EOS # 0.2 10^3/uL (0.0-0.50); EOS % 2.3 % (0.0-3.0); HEMATOCRIT 39.8 % (36.0-47.0); HEMOGLOBIN 12.1 g/dl (12.0-15.5); LYMPH # 1.7 10^3/uL (1.5-4.5); LYMPH % 17.8 % (24.0-44.0); MEAN CORPUSCULAR HEMOGLOBIN 28.3 pg (27.0-33.0); MEAN CORPUSCULAR HGB CONC 30.4 g/dl (32.0-36.5); MEAN CORPUSCULAR VOLUME 93.2 fl (80.0-96.0); MONO # 0.9 10^3/uL (0.0-0.8); MONO % 9.2 % (0.0-5.0); NEUTROPHILS # 6.4 10^3/uL (1.8-7.7); NEUTROPHILS % 69.1 % (36.0-66.0); PLATELET COUNT, AUTOMATED 255 10^3/uL (150-450); RED BLOOD COUNT 4.27 10^6/uL (4.00-5.40); WHITE BLOOD COUNT 9.3 10^3/uL (4.0-10.0)
[2018-10-24 17:55] LABS: HEMOGLOBIN A1c 5.9 %
== END ==
LOC: M SFHCLERA 10:59
PROVIDERS: ATTEND Family Medicine
DX: Z01.818 Encounter for other preprocedural examination (principal); D64.9 Anemia, unspecified; K76.0 Fatty (change of) liver, not elsewhere classified; R73.03 Prediabetes
CPT/HCPCS: 80053; 82728; 83036; 83550; 85025; G0463

== ENCOUNTER → 2018-11-04 | Outpatient (CLI) | payer MEDICARE ==
[2018-11-04 11:59] LABS: HEMATOCRIT 38.6 % (36.0-47.0); HEMOGLOBIN 12.1 g/dl (12.0-15.5); MEAN CORPUSCULAR HEMOGLOBIN 29.7 pg (27.0-33.0); MEAN CORPUSCULAR HGB CONC 31.3 g/dl (32.0-36.5); MEAN CORPUSCULAR VOLUME 94.8 fl (80.0-96.0); PLATELET COUNT, AUTOMATED 204 10^3/uL (150-450); RED BLOOD COUNT 4.07 10^6/uL (4.00-5.40); WHITE BLOOD COUNT 6.2 10^3/uL (4.0-10.0)
[2018-11-04 12:12] LABS: ALBUMIN 3.3 GM/DL (3.2-5.2); CALCIUM LEVEL 8.9 MG/DL (8.8-10.2); CREATININE FOR GFR 1.27 MG/DL (0.55-1.30); GLOMERULAR FILTRATION RATE 44.2 (>39); PHOSPHORUS LEVEL 3.1 MG/DL (2.5-4.9); POTASSIUM SERUM 4.3 MEQ/L (3.5-5.1)
[2018-11-04 12:15] LABS: INR 1.17; PROTHROMBIN TIME 15.1 SECONDS (12.1-14.4)
== END ==
LOC: M LRY 08:51
PROVIDERS: ATTEND Internal Medicine Cardiovascular Disease
DX: I25.10 Atherosclerotic heart disease of native coronary artery without angina pectoris (principal)

== ENCOUNTER 2018-12-12 07:58 | Outpatient (RCR) | payer MEDICARE ==
[2018-12-12] MEDS ORDERED: ACET-897 PO (08:51)
[2018-12-12] MEDS ORDERED: PLAV1TAB2 PO (08:51)
[2018-12-12] MEDS ORDERED: LOPR1TAB6 PO (08:51)
[2018-12-12] MEDS ORDERED: ATOR40TA75 PO (08:51)
[2018-12-12] MEDS ORDERED: SPIR1CAP INH (08:51)
[2018-12-12] MEDS ORDERED: ALBU83IN INH (08:51)
--- NOTE | 2018-12-12 09:38 | CARECAPL ---
Assessment Account #s: Initial Assessment General Diagnoses: Stent Date of event: Nov 15, 2018 Physician: Doni Perales Allergies: Coded Allergies: No Known Allergies (Unverified , 09/27/18) Date Entered Program: Dec 12, 2018 Risk strat for cardiac event: High Exercise Date: Dec 12, 2018 Assessment: Initial Assessment Exercise Prescription Plan to educate about cardiac risk factors and disease and to provide a monitored exercise program to build strength and endurance Modalities initiated: Cardio-Strider (will add), Nustep (will add), Arm Aerometer (will add), Dumbells (will add), Recumbent Bike (will add) Frequency: 2-3 Duration (Minutes) 30-60 minutes total exercise a day. 6-10 work intervals in minutes. prn rest intervals in minutes. Functional Capacity Goal Sustained Metabolic Equivalent of a task (MET) goal of 2.5-3.5 for 15-20 minutes. Progression (METS) Increase by: .5 METS every: 2-3 sessions Angina with ex: No Target Heart Rate rest + 35-40 betablocker therapy Resistance Training: Yes Reps: 6-8 Hypertension: Yes Hypertension controlled with: Diet Resting 116/55 Meds see below Medications Scheduled Apixaban (Eliquis), 5 MG PO BID, (Reported) Atorvastatin Calcium (Atorvastatin Calcium), 1 TAB PO DAILY, (Reported) Chlorthalidone (Chlorthalidone), 12.5 MG PO DAILY, (Reported) Clopidogrel Bisulfate (Plavix), 1 TAB PO DAILY, (Reported) Ferrous Sulfate (Ferrous Sulfate), 325 MG PO TID Losartan Potassium (Losartan Potassium), 50 MG PO QHS, (Reported) Metoprolol Tartrate (Lopressor), 50 MG PO DAILY, (Reported) Tiotropium [place] (Spiriva), 2 INHALATION INH DAILY, (Reported) Turmeric/Turmeric Root Extract (Turmeric 500 mg Capsule), 500 MG PO QHS, (Reported) Scheduled PRN Acetaminophen (Tylenol Extra Strength), 500 MG PO Q6HP PRN for PAIN, (Reported) Albuterol Sulf (Albuterol Sulfate), 2.5 MG INH for SHORTNESS OF BREATH, (Reported) Discontinued Medications Lorazepam (Ativan), 1 TAB PO BIDP PRN for anxiety Discontinued Reason: Pt states not taking [complete PFTs], (DME) Discontinued Reason: Pt states not taking Target Goals Individual exercise Rx (1) BP 140/90 or 130/80 if DM or CKD (1) Aerobic active 30+min 5 days per week (1) Nutrition Date: Dec 12, 2018 Assessment: Initial Assessment Lipid- med/supplement Atorvastatin Diabetes Diabetes: No Weight Management Weight (lbs): 210 Height (inches): 55 BMI: 34.9 Weight goal: 175 Special Diet: low salt, mediteranean diet, low-fat Alcohol: none Diet Access Tool: Rate your plate Score: 44 Intervention Curriculum Writer Consult: Yes (will refer) Nurse/patient discussion: Yes Dietary Goals smaller portions and better choices Diet Class: Yes (will see this program) Referral to Diabetes education: No Referral to lipid clinic: No Referral to weight mangement p: Yes Education Eating Healthy Target goal LDL-C<100 if triglycerides are >200 Non-HDL-C should be <130 (1) LDL-C<70 for high risk patients (4) HbA1c<7% (1) BMI<25 Waist cir<40in M/<35in F (1) Education Date: Dec 12, 2018 Assessment: Initial Assessment Learning Barriers: ready Knowledge Test Score: 7 Family Support: Yes Tobacco use: No Quit: >6 months (1.5 yrs ago 51yr smoker) Tobacco Use Smokeless tobacco: No Intervention Referral to smoking cessation: No Individual education and couns: No Tobacco Adjunct: No Education class schedule given: Yes Target Goals Complete cessation of tobacco use (1). Psychosocial Date: Dec 12, 2018 Assessment: Initial Assessment Psych Test (Initial/Discharge) Tool Used: CESD Score: 10 Intervention Physician Consult: No Physician Referral: No Target Goal Assess presence or absence of depression using a valid screening tool (1). Maximize coping skills (2). Positive support system (2). Patient/Program Goal Preventative Medication: Yes Clopidogrel, Yes Beta blockade, Yes MICHAELA Inhibitor, Yes Statin/OTR lipid Lowering Fall Risk Assess: Yes Assisstive Device: cane Provider Assessment Session Number: 1 Provider Assessment: Proceed with rehab Yola Briceño RN Dec 12, 2018 09:38
== END 2018-12-25 ==
LOC: M CR 07:58
PROVIDERS: ATTEND Internal Medicine Cardiovascular Disease
DX: Z98.61 Coronary angioplasty status (principal)

== ENCOUNTER 2019-01-16 10:19 | Outpatient (RCR) | payer MEDICARE ==
--- NOTE | 2019-01-08 10:18 | CARECAPL ---
Assessment Account #s: Re-Assessment I General Diagnoses: Stent Date of event: Nov 15, 2018 Physician: Doni Perales Allergies: Coded Allergies: No Known Allergies (Unverified , 09/27/18) Date Entered Program: Dec 12, 2018 Risk strat for cardiac event: High Exercise Date: Jan 08, 2019 Assessment: Re-Assessment I Exercise Prescription Modalities initiated: Cardio-Strider (R1 mts 2.5 rpe 4 5 minutes), Arm Aerometer (1.5 mts 2.5 rpe 3 6 minutes), Dumbells, Recumbent Bike (R2 mts 4.7 rpe 3.0 6 minutes) Frequency: 2 Duration (Minutes) minutes total exercise a day. work intervals in minutes. rest intervals in minutes. Functional Capacity Goal Sustained Metabolic Equivalent of a task (MET) goal of 4-4.5 for 15-20 minutes. Intensity: 4-Quite a bit Progression (METS) Increase by: METS every: sessions Angina with ex: No Resistance Training: Yes Weight (pounds): 2 Reps: 6-8 Medications Scheduled Apixaban (Eliquis), 5 MG PO BID, (Reported) Atorvastatin Calcium (Atorvastatin Calcium), 1 TAB PO DAILY, (Reported) Chlorthalidone (Chlorthalidone), 12.5 MG PO DAILY, (Reported) Clopidogrel Bisulfate (Plavix), 1 TAB PO DAILY, (Reported) Ferrous Sulfate (Ferrous Sulfate), 325 MG PO TID Losartan Potassium (Losartan Potassium), 50 MG PO QHS, (Reported) Metoprolol Tartrate (Lopressor), 50 MG PO DAILY, (Reported) Tiotropium [place] (Spiriva), 2 INHALATION INH DAILY, (Reported) Turmeric/Turmeric Root Extract (Turmeric 500 mg Capsule), 500 MG PO QHS, (Reported) Scheduled PRN Acetaminophen (Tylenol Extra Strength), 500 MG PO Q6HP PRN for PAIN, (Reported) Albuterol Sulf (Albuterol Sulfate), 2.5 MG INH for SHORTNESS OF BREATH, (Reported) Current BP 116/60 Med Change: No Education Goals Met: No (progressing toward goals. Very SOB during exercise (hx copd) Sat taken 96% on RA) Target Goals Individual exercise Rx (1) BP 140/90 or 130/80 if DM or CKD (1) Aerobic active 30+min 5 days per week (1) Nutrition Date: Jan 08, 2019 Assessment: Re-Assessment I Current Weight (pounds): 210 Intervention Diet Class: No (will see during program) Education Eating Healthy (will cover and be reviewed during session with chocolate finisher operator) Education Goals Met: No (progressing toward goals) Target goal LDL-C<100 if triglycerides are >200 Non-HDL-C should be <130 (1) LDL-C<70 for high risk patients (4) HbA1c<7% (1) BMI<25 Waist cir<40in M/<35in F (1) Education Date: Jan 08, 2019 Assessment: Re-Assessment I Intervention Attended education classes: Yes Education: CAD (education material given and reviewed with pt), Risk factors (education handout given and material reviewed with pt), cardiac A&P (education material given and reviewed with pt), Angina S/S (education material given and reviewed with pt), Sexuality (education material given and reviewed with pt) Education Goals Met: No (progressing toward goals) Target Goals Complete cessation of tobacco use (1). Psychosocial Date: Jan 08, 2019 Assessment: Re-Assessment I Stress Management Class: Yes Uses Stress Management Skills: Yes Education Education: Coping Techniques (deep breathing, doing things you enjoy), S/S de pression (lack of interest, sleeping more, mood changes, appetite changes), Relaxation Techniques (yoga, deep breathing, mind exercises) Education Goals Met: No (progressing toward goals) Target Goal Assess presence or absence of depression using a valid screening tool (1). Maximize coping skills (2). Positive support system (2). Provider Assessment Session Number: 4 Provider Assessment: No changes Yola Briceño RN Jan 08, 2019 10:18
[~2019-01-16 10:19] MED LIST changes: +ACET-897 PO; +ALBU83IN INH; +ATOR40TA75 PO; +LOPR1TAB6 PO; +PLAV1TAB2 PO; +SPIR1CAP INH
== END 2019-01-25 ==
LOC: M CR 10:19
PROVIDERS: ATTEND Internal Medicine Cardiovascular Disease
DX: Z98.61 Coronary angioplasty status (principal)

== ENCOUNTER 2019-02-06 09:46 | Outpatient (RCR) | payer MEDICARE ==
--- NOTE | 2019-02-03 15:24 | CARECAPL ---
Assessment Account #s: Re-Assessment II General Diagnoses: Stent Date of event: Nov 15, 2018 Physician: Doni Perales Allergies: Coded Allergies: No Known Allergies (Unverified , 09/27/18) Date Entered Program: Dec 12, 2018 Risk strat for cardiac event: High Exercise Date: Feb 03, 2019 Assessment: Re-Assessment II Stages of change: Contemplate Exercise Prescription Modalities initiated: Cardio-Strider (R# mts 2.4 rpe 4 10 minutes), Nustep (L2 mts 2.8 rpe 3 10 minutes), Arm Aerometer (1.5 mts 2.1 rpe 4 8 minutes), Dumbells, Recumbent Bike (R2 mts 3.2 rpe 4 7 minutes) Duration (Minutes) 30 - 60 minutes total exercise a day. 15 - 20 work intervals in minutes. PRN rest intervals in minutes. Functional Capacity Goal Sustained Metabolic Equivalent of a task (MET) goal of for minutes. Intensity: 3-Moderate Progression (METS) Increase by: METS every: sessions Angina with ex: No Resistance Training: Yes Weight (pounds): 3 Reps: 8-12 Hypertension: Yes Hypertension controlled with: Other (exercise) Resting 120/72 Peak Exercise BP 140/90 Meds see below Medications Scheduled Apixaban (Eliquis), 5 MG PO BID, (Reported) Atorvastatin Calcium (Atorvastatin Calcium), 1 TAB PO DAILY, (Reported) Chlorthalidone (Chlorthalidone), 12.5 MG PO DAILY, (Reported) Clopidogrel Bisulfate (Plavix), 1 TAB PO DAILY, (Reported) Ferrous Sulfate (Ferrous Sulfate), 325 MG PO TID Losartan Potassium (Losartan Potassium), 50 MG PO QHS, (Reported) Metoprolol Tartrate (Lopressor), 50 MG PO DAILY, (Reported) Tiotropium [place] (Spiriva), 2 INHALATION INH DAILY, (Reported) Turmeric/Turmeric Root Extract (Turmeric 500 mg Capsule), 500 MG PO QHS, (Reported) Scheduled PRN Acetaminophen (Tylenol Extra Strength), 500 MG PO Q6HP PRN for PAIN, (Reported) Albuterol Sulf (Albuterol Sulfate), 2.5 MG INH for SHORTNESS OF BREATH, (Reported) Current BP 100/60 Intervention Home exercise: Type (walking, hand weights, join local gym), Frequency, Duration (30-60 minutes) Resistance Training: Yes Education: Self pulse (location of pulse), Ex safety (hydration), S/S to report (dizziness, abnormal sob, ), Low NA diet (15-2000mg diet, good choices), BP medication (compliance), RPE Scale (scale 1/5 on difficulty), Equipment orientation Education Goals Met: No (progressing toward goals) Target Goals Individual exercise Rx (1) BP 140/90 or 130/80 if DM or CKD (1) Aerobic active 30+min 5 days per week (1) Nutrition Date: Feb 03, 2019 Assessment: Re-Assessment II Stages of change: Preperation Current Weight (pounds): 210 Weight Goal 200 Intervention Diet Class: Yes (will see this program) Education Eating Healthy (smaller portions and better choices) Education Goals Met: No (progressing toward goals) Target goal LDL-C<100 if triglycerides are >200 Non-HDL-C should be <130 (1) LDL-C<70 for high risk patients (4) HbA1c<7% (1) BMI<25 Waist cir<40in M/<35in F (1) Education Date: Feb 03, 2019 Assessment: Re-Assessment II Intervention Attended education classes: Yes Education: Risk factors, cardiac A&P, Angina S/S (nitro, reporting chest pain) Education Goals Met: No (progressing toward goals, continued education throughout program) Target Goals Complete cessation of tobacco use (1). Psychosocial Date: Feb 03, 2019 Assessment: Re-Assessment II Stress Management Class: Yes Uses Stress Management Skills: Yes Education Education: Other (see prior ITP) Education Goals Met: No (progressing toward goals) Target Goal Assess presence or absence of depression using a valid screening tool (1). Maximize coping skills (2). Positive support system (2). Provider Assessment Session Number: 8 Provider Assessment: No changes (fair attendance, works hard during program. Good attitude today program and making changes in her life) Yola Briceño RN Feb 03, 2019 15:24
--- NOTE | 2019-02-14 09:34 | CARECAPL ---
Assessment Account #s: Discharge General Diagnoses: Stent Date of event: Nov 15, 2018 Physician: Doni Perales Allergies: Coded Allergies: No Known Allergies (Unverified , 09/27/18) Date Entered Program: Dec 12, 2018 Risk strat for cardiac event: High Exercise Stages of change: Pre-contemplation Exercise Prescription Duration (Minutes) 30 - 60 minutes total exercise a day. 15 - 20 work intervals in minutes. PRN rest intervals in minutes. Functional Capacity Goal Sustained Metabolic Equivalent of a task (MET) goal of for minutes. Progression (METS) Increase by: METS every: sessions Hypertension: No Hypertension controlled with: Medication Resting 112/78 Peak Exercise BP 142/80 Meds metoprolol and losartan Medications Scheduled Apixaban (Eliquis), 5 MG PO BID, (Reported) Atorvastatin Calcium (Atorvastatin Calcium), 1 TAB PO DAILY, (Reported) Chlorthalidone (Chlorthalidone), 12.5 MG PO DAILY, (Reported) Clopidogrel Bisulfate (Plavix), 1 TAB PO DAILY, (Reported) Ferrous Sulfate (Ferrous Sulfate), 325 MG PO TID Losartan Potassium (Losartan Potassium), 50 MG PO QHS, (Reported) Metoprolol Tartrate (Lopressor), 50 MG PO DAILY, (Reported) Tiotropium [place] (Spiriva), 2 INHALATION INH DAILY, (Reported) Turmeric/Turmeric Root Extract (Turmeric 500 mg Capsule), 500 MG PO QHS, (Reported) Scheduled PRN Acetaminophen (Tylenol Extra Strength), 500 MG PO Q6HP PRN for PAIN, (Reported) Albuterol Sulf (Albuterol Sulfate), 2.5 MG INH for SHORTNESS OF BREATH, (Reported) Education Goals Met: Yes Target Goals Individual exercise Rx (1) BP 140/90 or 130/80 if DM or CKD (1) Aerobic active 30+min 5 days per week (1) Nutrition Date: Feb 14, 2019 Assessment: Followup/Discharge Stages of change: Pre-contemplation Med Change: No Diabetes Diabetes: No Medication Change: No Weight Management Weight (lbs): 210 Intervention Client Service Supervisor Consult: No Nurse/patient discussion: Yes Diet Class: No Referral to Diabetes education: No Referral to lipid clinic: No Referral to weight mangement p: No Education Goals Met: Yes Target goal LDL-C<100 if triglycerides are >200 Non-HDL-C should be <130 (1) LDL-C<70 for high risk patients (4) HbA1c<7% (1) BMI<25 Waist cir<40in M/<35in F (1) Education Date: Feb 14, 2019 Assessment: Followup/Discharge Stages of change: Pre-contemplation Education Goals Met: Yes Target Goals Complete cessation of tobacco use (1). Psychosocial Date: Feb 14, 2019 Assessment: Followup/Discharge Stages of change: Pre-contemplation Stress Management Class: Yes Uses Stress Management Skills: Yes Target Goal Assess presence or absence of depression using a valid screening tool (1). Maximize coping skills (2). Positive support system (2). Patient/Program Goal Preventative Medication: Yes Beta blockade, Yes Statin/OTR lipid Lowering Fall Risk Assess: Yes (fall risk) Assisstive Device: cane Provider Assessment Session Number: 9 Provider Assessment: Please add/change: (patient stated she could no longer continue with program after 9 session having issues with chronic pain and she recently had fallen. she stated she doesn't see where this program is helping but her attendance had been poor d/t her pain. ) Bree Jackson RN Feb 14, 2019 09:34
== END 2019-02-24 ==
LOC: M CR 09:46
PROVIDERS: ATTEND Internal Medicine Cardiovascular Disease
DX: Z98.61 Coronary angioplasty status (principal)

== ENCOUNTER → 2019-02-06 | Outpatient (REF) | payer MEDICARE ==
[2019-02-06 14:04] LABS: C REACTIVE PROTEIN QUANTITATIV 1.49 MG/DL (0.00-0.30)
[2019-02-07 10:42] LABS: CA19-9 TUMOR MARKER,CARBOHYDRA 11.6 U/ML (<35.0)
[2019-02-07 14:42] LABS: RNP ANTIBODY 0.9 AI (0.0-0.9); SMITHS ANTIBODY < 0.2 AI (0.0-0.9)
[2019-02-12 15:34] LABS: ANA (HEP2) Negative (.); ANTI DS-DNA AB <1:10 titer (.); ANTI JO-1 ANTIBODIES <0.2 AI (0.0-0.9)
== END ==
LOC: M LAB REF 13:19
PROVIDERS: ATTEND Internal Medicine Pulmonary Disease
DX: J43.9 Emphysema, unspecified (principal)

== ENCOUNTER → 2019-04-15 | Outpatient (REF) | payer MEDICARE ==
[2019-04-15 13:54] LABS: CHOLESTEROL RISK RATIO 2.595 (<5)
[2019-04-15 14:03] LABS: TOTAL 25(OH) VITAMIN D 24.1 NG/ML (30.0-100.0)
== END ==
LOC: M SFHCLERA 10:24
PROVIDERS: ATTEND Nurse Practitioner Family
DX: E55.9 Vitamin D deficiency, unspecified (principal); E78.1 Pure hyperglyceridemia
CPT/HCPCS: 80061; 82306; G0463

== ENCOUNTER 2019-05-19 12:05 | Inpatient (IN) | payer MEDICARE ==
[2019-05-19] VITALS (10 sets, daily range): BP systolic 95–144; BP diastolic 44–78
[~2019-05-19] VITALS: Ht 167.6 cm; Wt 97.7 kg
[2019-05-19] MEDS ORDERED: ESCI10TA2 PO (12:29)
[2019-05-19 12:56] LABS: BASO # 0.1 10^3/uL (0.0-0.2); BASO % 0.4 % (0.0-1.0); EOS # 0.2 10^3/uL (0.0-0.5); EOS % 1.9 % (0.0-3.0); HEMATOCRIT 24.9 % (36.0-47.0); LYMPH # 1.1 10^3/uL (1.5-5.0); LYMPH % 9.5 % (24.0-44.0); MEAN CORPUSCULAR HEMOGLOBIN 23.3 pg (27.0-33.0); MEAN CORPUSCULAR HGB CONC 27.3 g/dl (32.0-36.5); MEAN CORPUSCULAR VOLUME 85.3 fl (80.0-96.0); MONO % 8.7 % (0.0-5.0); NEUTROPHILS # 8.9 10^3/uL (1.5-8.5); NEUTROPHILS % 78.4 % (36.0-66.0); PLATELET COUNT, AUTOMATED 349 10^3/uL (150-450); RED BLOOD COUNT 2.92 10^6/uL (4.00-5.40); WHITE BLOOD COUNT 11.4 10^3/uL (4.0-10.0)
[2019-05-19 12:59] LABS: HEMOGLOBIN 6.8 g/dl (12.0-15.5)
[2019-05-19] MEDS ORDERED: NS 1,000 ML IV SCH (13:00)
[2019-05-19] MEDS ORDERED: SYMB80INH INH (13:25)
[2019-05-19] MEDS ORDERED: LOSA100T50 PO (13:25)
[2019-05-19] MEDS ORDERED: FERR1TAB8 PO (13:25)
[2019-05-19] MEDS ORDERED: METO1TAB7 PO (13:25)
[2019-05-19] MEDS ORDERED: VITA100066 PO (13:25)
[2019-05-19 13:31] LABS: ALBUMIN 2.9 GM/DL (3.2-5.2); ALT/SGPT 25 U/L (12-78); BILIRUBIN,DIRECT 0.1 MG/DL (0.0-0.2); BILIRUBIN,TOTAL 0.3 MG/DL (0.2-1.0); BLOOD UREA NITROGEN 36 MG/DL (7-18); CALCIUM LEVEL 8.8 MG/DL (8.8-10.2); CARBON DIOXIDE LEVEL 22 MEQ/L (21-32); CHLORIDE LEVEL 106 MEQ/L (98-107); CK-MB VALUE MASS 1.9 NG/ML (<3.6); CPK CREATINE PHOSPHOKINASE 77 U/L (26-192); CREATININE FOR GFR 1.37 MG/DL (0.55-1.30); GLOMERULAR FILTRATION RATE 40.5 (>39); GLUCOSE, FASTING 174 MG/DL (70-100); MB/CK RELATIVE INDEX 2.47 (< OR =4); POTASSIUM SERUM 4.4 MEQ/L (3.5-5.1); SODIUM LEVEL 139 MEQ/L (136-145); TROPONIN I < 0.02 NG/ML (< 0.10)
--- NOTE | 2019-05-19 14:12 | REP ---
Clinical: Admission Technique: Upright view of the chest with supine and upright views of the abdomen and pelvis. Findings: Frontal upright view of the chest demonstrates no acute cardiopulmonary process or free air below the diaphragm to suspect pneumoperitoneum. Supine and upright views of the abdomen and pelvis demonstrate nonspecific bowel gas pattern without obstruction or perforation. No organomegaly. No abnormal calcifications. Skeletal structures normal for age. Impression: Nonspecific bowel gas pattern. Electronically Signed by Praveen Arroyo MD 05/19/2019 02:04 P
[2019-05-19] MEDS ORDERED: MAALOX 30 ML SUSP *UDC PO PRN (16:15)
[2019-05-19] MEDS ORDERED: ALBUTEROL SULFATE 2.5 MG/0.5 ML INH NEB SOLN INH PRN (16:15)
[2019-05-19] MEDS ORDERED: ACETAMINOPHEN TAB 650MG DOSE (2X325MG) PO PRN (16:15)
[2019-05-19] MEDS ORDERED: MOM 30ML SUSPENSION UDC PO PRN (16:15)
--- NOTE | 2019-05-19 17:00 | HPEPDOC ---
[facility] Medical History & Physical Date of Admission May 19, 2019 Date of Service: May 19, 2019 Primary Care Physician: JOSEPHINE OLIVO Attending Physician: ESTELLE MATTSON MD History and Physical CHIEF COMPLAINT: Abnormal Lab/Anemia HISTORY OF PRESENT ILLNESS: 73-year-old female who presents today because she was notified of abnormal lab results by her doctor and told to come to the emergency department. She states she has been having progressively worsening shortness of breath, which started in September of this year. She was told at that time that she was anemic, and was treated with iron. She also had a colonoscopy and EGD which did not show any source of bleeding. She reports that since that time she has continued to have shortness of breath. She was referred to pulmon ology where she was diagnosed with COPD and started on inhalers. However, her shortness of breath has not improved from this. She was also found to have a positive stress test. During preop clearance for knee surgery and received cardiac stenting in October 2018. Since then, she has followed with cardiology, had a stress test scheduled for May 26 in order to further evaluate her shortness of breath. The patient states that over the past month. Her shortness of breath seems to be worsening. Previously her symptoms would occur on exertion and it has progressed to shortness of breath at rest. She also reports some lightheadedness which occurs upon standing and fatigue, which has been worsening over the past month along with the shortness of breath. PAST MEDICAL HISTORY: 1. Atrial Fibrillation 2. Lyme Disease 3. Anemia 4. COPD 5. HTN 6. CAD s/p stents on 11/15/2018 PAST SURGICAL HISTORY: 1. L knee Meniscus repaired 2007 2. R hip fracture repaired 2013 3. endoscopy and colonoscopy 09/2018 4. DEX x2 RCA 11/15/2018 5. Partial Hysterectomy 1987 SOCIAL HISTORY: 60-75 pack year smoking history, quit about 2 years ago Nicotine vape for 10 months after quitting smoking, quit vaping September 2018 Very occasional alcohol use. Denies any history of illicit or IV drug use FAMILY HISTORY: Father: at age 42 of CAD Mother: at age 82 of metastatic uterine cancer Brother 1: Alive, prostate cancer. Brother 2: Alive, ESTRELLA and recurrent blood clots ALLERGIES: Please see below. REVIEW OF SYSTEMS: CONSTITUTIONAL: Endorses chills and fatigue. Denies fevers, night sweats, unexpected change in weight. HEENT: Denies change in vision, change in hearing, dysphagia. CARDIOVASCULAR: Endorses shortness of breath and lightheadedness. Denies chest pain, palpitations. RESPIRATORY: Denies cough, wheezing, coughing up blood. GASTROINTESTINAL: Denies nausea, vomiting, abdominal pain, diarrhea, constipation, blood in stool. GENITOURINARY: Endorses urinary frequency, especially at night. Denies dysuria, urinary urgency, vaginal bleeding. SKIN: Denies rash, lesions. MUSCULOSKELETAL: Denies joint pain or muscle aches. NEUROLOGICAL: Denies headache, dizziness, weakness. PSYCHIATRIC: Denies recent change in mood. HOME MEDICATIONS: Please see below. PHYSICAL EXAMINATION: VITAL SIGNS: See Below GENERAL: Alert, comfortable, in no acute distress HEENT: Normocephalic, atraumatic, PERRLA, EOMI, moist mucous membranes NECK: Supple, trachea midline, no lymphadenopathy, no JVD CARDIOVASCULAR: Regular rate and rhythm, normal S1 and S2. No murmurs, rubs, or gallops RESPIRATORY: Clear to auscultation bilaterally with equal air entry bilaterally. No wheezing, rhonchi, or rales. ABDOMEN: Soft, nontender, nondistended, bowel sounds present, no masses or hepatosplenomegaly appreciated EXTREMITIES: No cyanosis or edema. Pulses 2+/4 in bilateral upper and lower extremities SKIN: [place], warm, dry NEUROLOGIC: Alert and oriented 3 to person, place and time. Cranial nerves 2-12 grossly intact. No focal deficits appreciated PSYCHIATRIC: Mood and affect appropriate LABORATORY DATA: See below. IMAGING: -Abdomen XR 05/19: Nonspecific bowel gas pattern. MICROBIOLOGY: Please see below. ASSESSMENT/PLAN: 73-year-old female with past medical history of iron deficiency anemia, who presents with low hemoglobin levels from outpatient laboratory workup and 1 month history of progressively worsening shortness of breath, fatigue, and lightheadedness. # Anemia - likely 2/2 iron deficiency considering her history and prior negative EGD and colonoscopy - possibly 2/2 blood loss, will hold Eliquis for now and check stool occult blood - pt receiving 2 units PRBCs #Atrial Fibrillation - currently rate controlled, continue home metoprolol - hold home Eliquis for now in the setting of anemia with unknown bleeding status # COPD - no evidence of acute exacerbation - continue home inhalers # HTN - continue home chlorthalidone and losartan # CAD - s/p stents on 11/15/2018 - continue home clopidogrel and atorvastatin - Cardiac enzymes negative on admission # Mood disorder - continue home escitalopram DVT Prophylaxis: TEDs and SCDs Disposition: Inpatient pending stabilization of H/H Vital Signs Vital Signs Date Time Temp Pulse Resp B/P (MAP) Pulse Ox O2 Delivery O2 Flow Rate FiO2 05/19/19 15:04 97.9 86 20 132/63 97 Room Air Laboratory Data Labs 24H Laboratory Tests 2 05/19/19 12:35: Immature Granulocyte % (Auto) 1.1, Neutrophils (%) (Auto) 78.4H, Lymphocytes (%) (Auto) 9.5L, Monocytes (%) (Auto) 8.7H, Eosinophils (%) (Auto) 1.9, Basophils (%) (Auto) 0.4, Neutrophils # (Auto) 8.9H, Lymphocytes # (Auto) 1.1L, Monocytes # (Auto) 1.0H, Eosinophils # (Auto) 0.2, Basophils # (Auto) 0.1, Nucleated Red Blood Cells % (auto) 0.0, Anion Gap 11, Glomerular Filtration Rate 40.5, Calcium Level 8.8, Total Bilirubin 0.3, Direct Bilirubin 0.1, Aspartate Amino Transf ( AST/SGOT) 14, Alanine Aminotransferase (ALT/SGPT) 25, Alkaline Phosphatase 138H, Total Creatine Kinase 77, Creatine Kinase MB 1.9, Creatine Kinase MB Relative Index 2.47, Troponin I < 0.02, Total Protein 6.0L, Albumin 2.9L, Albumin/Globulin Ratio 0.94L, Thyroid Stimulating Hormone (TSH) 2.390 CBC/BMP Laboratory Tests 05/19/19 12:35 Home Medications Scheduled Apixaban (Eliquis) 5 Mg Tablet, 5 MG PO BID Atorvastatin Calcium (Atorvastatin Calcium) 40 Mg Tablet, 40 MG PO QHS Budesonide/Formoterol (Symbicort 80-4.5 Mcg Inhaler) 6.9 Gm Hfa.aer.ad, 2 PUFF INH BID SAMPLE FROM [facility] Chlorthalidone (Chlorthalidone) 25 Mg Tablet, 12.5 MG PO DAILY Cholecalciferol (Vitamin D3) (Vitamin D3) 1,000 Unit Tablet, 2,000 UNIT PO DAILY Clopidogrel Bisulfate (Plavix) 75 Mg Tablet, 75 MG PO DAILY Escitalopram Oxalate (Escitalopram Oxalate) 10 Mg Tablet, 10 MG PO DAILY Ferrous Sulfate (Ferrous Sulfate) 325 Mg Tablet, 325 MG PO DAILY Losartan Potassium (Losartan Potassium) 100 Mg Tablet, 100 MG PO QHS Metoprolol Succinate (Metoprolol Succinate) 50 Mg Tab.er.24h, 50 MG PO QHS Turmeric/Turmeric Root Extract (Turmeric 500 mg Capsule) 1 Each Capsule, 500 MG PO QHS Scheduled PRN Acetaminophen (Tylenol Extra Strength) 500 Mg Tablet, 500 MG PO Q6HP PRN for PAIN Albuterol Sulf (Albuterol Sulfate) 2.5 Mg/3 Ml Vial.neb, 2.5 MG INH for SHORTNESS OF BREATH Allergies Coded Allergies: No Known Allergies (Unverified , 09/27/18) ATTENDING NOTE I have personally evaluated and examined the patient. Discussed with residents/students regarding plan of care and agree with the above assessment and plan. LATASHA GTZ D.O. May 19, 2019 17:00 ESTELLE MATTSON MD May 19, 2019 19:00
[2019-05-19 17:09] LABS: FERRITIN 9 NG/ML (8-252); IRON (FE) 217 UG/DL (50-170); PERCENT SATURATION 46.7 % (13.2-45.0); TOTAL IRON BINDING CAPACITY 465 UG/DL (250-450)
[2019-05-19] MEDS ORDERED: NS 500 ML IV ONE (19:30)
--- NOTE | 2019-05-19 19:51 | ECGEPIP ---
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
[2019-05-19] MEDS ORDERED: methylPREDNISolone INJ 125 MG/2 ML VIAL (J2930) IV ONE (20:00)
[2019-05-19] MEDS: LOSARTAN 50 MG TAB PO SCH (21:00)
[2019-05-19] MEDS: METOPROLOL SUCC (TopROL XL) 50MG **XL** TAB PO SCH (21:00)
[2019-05-19] MEDS: ATORVASTATIN 20 MG TAB PO SCH (21:58)
[2019-05-20] VITALS (10 sets, daily range): BP systolic 111–149; BP diastolic 54–68
[2019-05-20] MEDS: SYMBICORT 80/4.5MCG INHALER 6GM INH SCH ×3 (00:23→20:14)
[2019-05-20] MEDS: RAMELTEON 8 MG TAB (ROZEREM) PO SCH ×2 (00:52→21:20)
[2019-05-20 07:04] LABS: HEMATOCRIT 30.1 % (36.0-47.0); MEAN CORPUSCULAR HEMOGLOBIN 25.9 pg (27.0-33.0); MEAN CORPUSCULAR HGB CONC 30.2 g/dl (32.0-36.5); MEAN CORPUSCULAR VOLUME 85.5 fl (80.0-96.0); PLATELET COUNT, AUTOMATED 320 10^3/uL (150-450); RED BLOOD COUNT 3.52 10^6/uL (4.00-5.40); WHITE BLOOD COUNT 9.7 10^3/uL (4.0-10.0)
[2019-05-20 07:18] LABS: HEMOGLOBIN 9.1 g/dl (12.0-15.5)
[2019-05-20 07:29] LABS: CALCIUM LEVEL 8.3 MG/DL (8.8-10.2); CREATININE FOR GFR 1.49 MG/DL (0.55-1.30); GLOMERULAR FILTRATION RATE 36.7 (>39); POTASSIUM SERUM 4.3 MEQ/L (3.5-5.1)
[2019-05-20] MEDS ORDERED: FERROUS SULFATE 325MG TAB PO SCH (09:00)
[2019-05-20] MEDS: CLOPIDOGREL 75 MG TAB PO SCH (09:44)
[2019-05-20] MEDS: CHLORTHALIDONE 12.5MG PER 1/2 TABLET PO SCH (09:44)
[2019-05-20] MEDS: ESCITALOPRAM OXALATE 10 MG TAB (LEXAPRO) PO SCH (09:44)
[2019-05-20] MEDS ORDERED: NS 1,000 ML IV SCH (10:15)
--- NOTE | 2019-05-20 10:53 | IPNPDOC ---
Date Seen The patient was seen on 05/20/19. Progress Note SUBJECTIVE: Patient was seen and examined this morning comfortably in bed. She states she feels well, denies any shortness of breath overnight. She denies any symptoms during her hypotensive episode yesterday evening. She denies any new issues or complaints today. OBJECTIVE PHYSICAL EXAMINATION: VITAL SIGNS: See Below GENERAL: Alert, comfortable, in no acute distress HEENT: Normocephalic, atraumatic, moist mucous membranes NECK: Supple, trachea midline, no lymphadenopathy, no JVD CARDIOVASCULAR: Regular rate and rhythm, normal S1 and S2. No murmurs, rubs, or gallops RESPIRATORY: Clear to auscultation bilaterally with equal air entry bilaterally. No wheezing, rhonchi, or rales. ABDOMEN: Soft, nontender, nondistended, bowel sounds present, no masses or hepatosplenomegaly appreciated EXTREMITIES: No cyanosis or edema. Pulses 2+/4 in bilateral upper and lower extremities NEUROLOGIC: Alert and oriented 3 to person, place and time. No focal deficits appreciated PSYCHIATRIC: Mood and affect appropriate LABORATORY DATA, IMAGING STUDIES, MICROBIOLOGY: Please see below. ASSESSMENT/PLAN: 73-year-old female with past medical history of iron deficiency anemia, who presents with low hemoglobin levels from outpatient laboratory workup and 1 month history of progressively worsening shortness of breath, fatigue, and lightheadedness. # Anemia, unclear cause - improved s/p 2 units PRBCs - stool occult blood negative, outpatient follow up for repeat EGD/colonoscopy suggested - iron studies did not reveal iron deficiency #Elevated Cr - no known history of CKD - suspect prerenal KENNETH, will give IV fluids today and recheck labs tomorrow #Atrial Fibrillation - currently rate controlled, continue home metoprolol - hold home Eliquis for now in the setting of anemia with unknown bleeding status # COPD - no evidence of acute exacerbation - continue home inhalers # HTN - continue home chlorthalidone and losartan # CAD - s/p stents on 11/15/2018 - continue home clopidogrel and atorvastatin - Cardiac enzymes negative on admission # Mood disorder - continue home escitalopram DVT Prophylaxis: TEDs and SCDs Disposition: Inpatient pending improvement of kidney function ATTENDING NOTE I have personally evaluated and examined the patient. Discussed with resident/student regarding plan of care and agree with the above assessment and plan. VS, I&O, 24H, Fishbone Vital Signs/I&O Vital Signs Date Time Temp Pulse Resp B/P (MAP) Pulse Ox O2 Delivery O2 Flow Rate FiO2 05/20/19 06:00 97.7 81 19 146/67 (93) 96 Room Air I&O- Last 24 Hours up to 6 AM 05/20/19 05:59 Intake Total 1996.5 ml Output Total 1150 ml Balance 846.5 ml Laboratory Data 24H LABS Laboratory Tests 2 05/19/19 12:35: Immature Granulocyte % (Auto) 1.1, Neutrophils (%) (Auto) 78.4H, Lymphocytes (%) (Auto) 9.5L, Monocytes (%) (Auto) 8.7H, Eosinophils (%) (Auto) 1.9, Basophils (%) (Auto) 0.4, Neutrophils # (Auto) 8.9H, Lymphocytes # (Auto) 1.1L, Monocytes # (Auto) 1.0H, Eosinophils # (Auto) 0.2, Basophils # (Auto) 0.1, Nucleated Red Blood Cells % (auto) 0.0, Anion Gap 11, Glomerular Filtration Rate 40.5, Calcium Level 8.8, Iron Level 217H, Total Iron Binding Capacity 465H, Transferrin % Saturation 46.7H, Ferritin 9, Total Bilirubin 0.3, Direct Bilirubin 0.1, Aspartate Amino Transf (AST/SGOT) 14, Alanine Aminotransferase (ALT/SGPT) 25, Alkaline Phosphatase 138H, Total Creatine Kinase 77, Creatine Kinase MB 1.9, C reatine Kinase MB Relative Index 2.47, Troponin I < 0.02, Total Protein 6.0L, Albumin 2.9L, Albumin/Globulin Ratio 0.94L, Thyroid Stimulating Hormone (TSH) 2.390 05/20/19 00:20: Urine Color YELLOW, Urine Appearance CLEAR, Urine pH 5.0, Urine Specific [place] 1.016, Urine Protein NEGATIVE, Urine Glucose (UA) 3+H, Urine Ketones NEGATIVE, Urine Blood NEGATIVE, Urine Nitrite NEGATIVE, Urine Bilirubin NEGATIVE, Urine Urobilinogen 0.2, Urine Leukocyte Esterase NEGATIVE, Urine WBC (Auto) 1, Urine RBC (Auto) 2, Urine Hyaline Casts (Auto) 0, Urine Bacteria (Auto) NEGATIVE, Urine Squamous Epithelial Cells 1, Urine Mucus (Auto) SMALL, Urine Sperm (Auto) 05/20/19 06:26: Nucleated Red Blood Cells % (auto) 0.0, Anion Gap 11, Glomerular Filtration Rate 36.7L, Calcium Level 8.3L CBC/BMP Laboratory Tests 05/19/19 12:35 05/20/19 06:26 Microbiology Microbiology 05/20/19 Stool Occult Blood (OTTO) - Final, Complete LATASHA GTZ D.O. May 20, 2019 10:53 ESTELLE MATTSON MD May 20, 2019 14:25
[2019-05-20] MEDS: APIXABAN 5 MG TAB (ELIQUIS) PO SCH ×2 (11:15→21:21)
[2019-05-20] MEDS ORDERED: DEXTROSE 50% 50 ML SYRINGE IV PRN (20:15)
[2019-05-20] MEDS ORDERED: GLUCAGON FOR INJ 1 MG VIAL (J1610) SC PRN (20:15)
[2019-05-20] MEDS ORDERED: GLUCOSE 4 GM CHEW TABLET PO PRN (20:15)
[2019-05-20] MEDS ORDERED: diphenhydrAMINE 25 MG CAP PO ONE (21:00)
[2019-05-20] MEDS ORDERED: HumaLOG INSULIN (NovoLOG) PER UNIT SC SCH (21:00)
[2019-05-20] MEDS: LOSARTAN 50 MG TAB PO SCH (21:20)
[2019-05-20] MEDS: ATORVASTATIN 20 MG TAB PO SCH (21:20)
[2019-05-20] MEDS: METOPROLOL SUCC (TopROL XL) 50MG **XL** TAB PO SCH (21:21)
[2019-05-20 21:32] LABS: HEMOGLOBIN A1c 6.8 %
[2019-05-21 06:00] VITALS: BP 113/75
[2019-05-21 06:39] LABS: HEMATOCRIT 29.5 % (36.0-47.0); HEMOGLOBIN 8.7 g/dl (12.0-15.5); MEAN CORPUSCULAR HEMOGLOBIN 25.9 pg (27.0-33.0); MEAN CORPUSCULAR HGB CONC 29.5 g/dl (32.0-36.5); MEAN CORPUSCULAR VOLUME 87.8 fl (80.0-96.0); PLATELET COUNT, AUTOMATED 281 10^3/uL (150-450); RED BLOOD COUNT 3.36 10^6/uL (4.00-5.40); WHITE BLOOD COUNT 11.4 10^3/uL (4.0-10.0)
[2019-05-21 06:51] LABS: CALCIUM LEVEL 7.8 MG/DL (8.8-10.2); CREATININE FOR GFR 1.2 MG/DL (0.55-1.30); GLOMERULAR FILTRATION RATE 47.1 (>39); POTASSIUM SERUM 4.5 MEQ/L (3.5-5.1)
[2019-05-21] MEDS ORDERED: HumaLOG INSULIN (NovoLOG) PER UNIT SC SCH (07:30)
[2019-05-21] MEDS: ESCITALOPRAM OXALATE 10 MG TAB (LEXAPRO) PO SCH (08:38)
[2019-05-21] MEDS: CLOPIDOGREL 75 MG TAB PO SCH (08:38)
[2019-05-21] MEDS: CHLORTHALIDONE 12.5MG PER 1/2 TABLET PO SCH (08:46)
--- NOTE | 2019-05-21 10:09 | DS.PDOC ---
Discharge Summary General Date of Admission May 19, 2019 at 15:00 Date of Discharge 05/21/2019 Primary Care Physician: JOSEPHINE OLIVO Attending Physician: ESTELLE MATTSON MD Discharge Summary PROCEDURES PERFORMED DURING STAY: None. ADMITTING DIAGNOSES: 1. Symptomatic anemia. 2. Atrial fibrillation. 3. COPD 4. Hypertension. 5. CAD. 6. Mood disorder DISCHARGE DIAGNOSES: 1. Symptomatic anemia. 2. Atrial fibrillation. 3. COPD 4. Hypertension. 5. CAD. 6. Mood disorder COMPLICATIONS/CHIEF COMPLAINT: Dyspnea,Symptomatic Anemia. HISTORY OF PRESENT ILLNESS: 73-year-old female who presents today because she was notified of abnormal lab results by her doctor and told to come to the emergency department. She states she has been having progressively worsening shortness of breath, which started in September of this year. She was told at that time that she was anemic, and was treated with iron. She also had a colonoscopy and EGD which did not show any source of bleeding. She reports that since that time she has continued to have shortness of breath. She was referred to pulmonology where she was diagnosed with COPD and started on inhalers. However, her shortness of breath has not improved from this. She was also found to have a positive stress test. During preop clearance for knee surgery and received cardiac stenting in October 2018. Since then, she has followed with cardiology, had a stress test scheduled for May 26 in order to further evaluate her shortness of breath. The patient states that over the past month. Her shortness of breath seems to be worsening. Previously her symptoms would occur on exertion and it has progressed to shortness of breath at rest. She also reports some lightheadedness which occurs upon standing and fatigue, which has been worsening over the past month along with the shortness of breath. HOSPITAL COURSE: Pt was admitted to the hospital and given 2 units PRBCs. While the second unit was being administered, she did become hypotensive. The infusion was stopped and she was given IV fluids and solumedrol for possible transfusion reaction. Her blood pressure stabalized and a new bag of PRBCs was started to complete her second unit. Her hemoglobin levels subsequently improved. Transfusion reaction studies came back negative. During the second day of her admission, her Cr was found to be elevated, likely due to KENNETH. This was treated with 1 liter IV fluids and it subsequently normalized. During her admission, the patient was also noted to have elevated blood glucose levels. HbA1c was check and was found to be elevated at 6.8. This may be falsely elevated due to her anemia. The patient was started on sliding scale insulin for better glucose control. Diet modification was discussed and the patient was instructed to follow up for further management with her PCP. On the day of discharge, the patient was found to be stable and safe for discharge home. DISCHARGE MEDICATIONS: Please see below. ALLERGIES: Please see below. PHYSICAL EXAMINATION ON DISCHARGE: VITAL SIGNS: Please see below. GENERAL: Alert, comfortable, in no acute distress HEENT: Normocephalic, atraumatic, PERRLA, EOMI, moist mucous membranes NECK: Supple, trachea midline, no lymphadenopathy, no JVD CARDIOVASCULAR: Regular rate and rhythm, normal S1 and S2. No murmurs, rubs, or gallops RESPIRATORY: Clear to auscultation bilaterally with equal air entry bilaterally. No wheezing, rhonchi, or rales. ABDOMEN: Soft, nontender, nondistended, bowel sounds present, no masses or hepatosplenomegaly appreciated EXTREMITIES: No cyanosis or edema. Pulses 2+/4 in bilateral upper and lower extremities SKIN: [place], warm, dry NEUROLOGIC: Alert and oriented 3 [address] person, place and time. Cranial nerves 2-12 grossly intact. No focal deficits appreciated PSYCHIATRIC: Mood and affect appropriate LABORATORY DATA: Please see below. IMAGING: -Abdomen XR 05/19: Nonspecific bowel gas pattern. PROGNOSIS: Good ACTIVITY: As tolerated. DIET: As tolerated. DISCHARGE PLAN: Home, f/u with PCP and GI DISPOSITION: Home DISCHARGE INSTRUCTIONS: 1. Follow-up with your PCP in 7-10 days. Follow up with Dr. Zendejas from gastroenterology. 2. Stop taking your Eliquis 3. Continue taking iron supplement daily 4. If your symptoms return or your condition worsens, please call your PCP or return to the ED for further evaluation. 5. Needs CBC check at visit with PCP, consider resuming Eliquis if Hb remains stable. ITEMS TO FOLLOWUP ON ON OUTPATIENT: 1. Anemia - continue taking iron supplement, hold eliquis until re-evaluated by your PCP, and f/u with GI 2. Diabetes Mellitus - elevated HgA1c, discussed diet modification, PCP consider further evaluation and treatment DISCHARGE CONDITION: Stable. TIME SPENT ON DISCHARGE: 35 minutes. Attending Attestation: I have personally evaluated and examined the patient. Discussed with resident/student regarding plan of care and agree with the above assessment and plan. Vital Signs/I&Os Vital Signs Date Time Temp Pulse Resp B/P (MAP) Pulse Ox O2 Delivery O2 Flow Rate FiO2 05/21/19 06:00 98.0 82 21 113/75 (88) 95 Room Air I&O- Last 24 Hours up to 6 AM 05/21/19 05:59 Intake Total 2335 ml Output Total 0 ml Balance 2335 ml Laboratory Data Labs 24H Laboratory Tests 2 05/20/19 20:21: Estimated Mean Plasma Glucose 148H, Hemoglobin A1c 6.8 05/20/19 20:34: Bedside Glucose (Misc Panel) 235H 05/21/19 06:01: Nucleated Red Blood Cells % (auto) 0.0, Anion Gap 8, Glomerular Filtration Rate 47.1, Calcium Level 7.8L CBC/BMP Laboratory Tests 05/21/19 06:01 FSBS Laboratory Tests Test 05/20/19 20:34 Range/Units Bedside Glucose (Misc Panel) 235 83-110 MG/DL Microbiology Microbiology 05/20/19 Stool Occult Blood (OTTO) - Final, Complete Discharge Medications Scheduled Atorvastatin Calcium (Atorvastatin Calcium) 40 Mg Tablet, 40 MG PO QHS, (Reported) Budesonide/Formoterol (Symbicort 80-4.5 Mcg Inhaler) 6.9 Gm Hfa.aer.ad, 2 PUFF INH BID, (Reported) SAMPLE FROM [facility] Chlorthalidone (Chlorthalidone) 25 Mg Tablet, 12.5 MG PO DAILY, (Reported) Cholecalciferol (Vitamin D3) (Vitamin D3) 1,000 Unit Tablet, 2,000 UNIT PO DAILY, (Reported) Clopidogrel Bisulfate (Plavix) 75 Mg Tablet, 75 MG PO DAILY, (Reported) Escitalopram Oxalate (Escitalopram Oxalate) 10 Mg Tablet, 10 MG PO DAILY, (R eported) Ferrous Sulfate (Ferrous Sulfate) 325 Mg Tablet, 325 MG PO DAILY, (Reported) Losartan Potassium (Losartan Potassium) 100 Mg Tablet, 100 MG PO QHS, (Reported) Metoprolol Succinate (Metoprolol Succinate) 50 Mg Tab.er.24h, 50 MG PO QHS, (Reported) Turmeric/Turmeric Root Extract (Turmeric 500 mg Capsule) 1 Each Capsule, 500 MG PO QHS, (Reported) Scheduled PRN Acetaminophen (Tylenol Extra Strength) 500 Mg Tablet, 500 MG PO Q6HP PRN for PAIN, (Reported) Albuterol Sulf (Albuterol Sulfate) 2.5 Mg/3 Ml Vial.neb, 2.5 MG INH for SHORTNESS OF BREATH, (Reported) Allergies Coded Allergies: No Known Allergies (Unverified , 09/27/18) LATASHA GTZ D.O. May 21, 2019 10:09 ESTELLE MATTSON MD May 21, 2019 10:43
== END 2019-05-21 10:18 | disposition home or self-care (01) | DRG 812 ==
LOC: M ED 12:05 → M ED INP 15:00 → M MSPAV 16:48
PROVIDERS: ADMIT Student in an Organized Health Care Education/Training Program; ATTEND Student in an Organized Health Care Education/Training Program
PROC: 30233N1 Transfusion of Nonautologous Red Blood Cells into Peripheral Vein, Percutaneous Approach (ICD-10-PCS; principal; 2019-05-19)
DX: D50.9 Iron deficiency anemia, unspecified (principal); I48.91 Unspecified atrial fibrillation; J44.9 Chronic obstructive pulmonary disease, unspecified; I10 Essential (primary) hypertension; I25.10 Atherosclerotic heart disease of native coronary artery without angina pectoris; Z95.5 Presence of coronary angioplasty implant and graft; Z87.891 Personal history of nicotine dependence; F39 Unspecified mood [affective] disorder; Z79.01 Long term (current) use of anticoagulants; Z79.899 Other long term (current) drug therapy

== ENCOUNTER → 2019-05-26 | Outpatient (REF) | payer MEDICARE ==
[~2019-05-26] MED LIST changes: +ESCI10TA2 PO; +FERR1TAB8 PO; +LOSA100T50 PO; +METO1TAB7 PO; +SYMB80INH INH; +VITA100066 PO
[2019-05-26 16:54] LABS: BASO % 0.4 % (0.0-1.0); EOS # 0.3 10^3/uL (0.0-0.5); EOS % 2.9 % (0.0-3.0); HEMATOCRIT 36.1 % (36.0-47.0); HEMOGLOBIN 10.6 g/dl (12.0-15.5); LYMPH # 1.5 10^3/uL (1.5-5.0); LYMPH % 15.8 % (24.0-44.0); MEAN CORPUSCULAR HEMOGLOBIN 25.8 pg (27.0-33.0); MEAN CORPUSCULAR HGB CONC 29.4 g/dl (32.0-36.5); MEAN CORPUSCULAR VOLUME 87.8 fl (80.0-96.0); MONO # 0.7 10^3/uL (0.0-0.8); MONO % 7.6 % (0.0-5.0); NEUTROPHILS # 6.8 10^3/uL (1.5-8.5); NEUTROPHILS % 72.6 % (36.0-66.0); PLATELET COUNT, AUTOMATED 303 10^3/uL (150-450); RED BLOOD COUNT 4.11 10^6/uL (4.00-5.40); WHITE BLOOD COUNT 9.4 10^3/uL (4.0-10.0)
== END ==
LOC: M SFHCLERA 13:53
PROVIDERS: ATTEND Nurse Practitioner Family
DX: D64.9 Anemia, unspecified (principal)
CPT/HCPCS: 85025; G0463

== ENCOUNTER → 2019-06-02 | Outpatient (CLI) | payer MEDICARE ==
[2019-06-02 16:57] LABS: BASO # 0.1 10^3/uL (0.0-0.2); BASO % 0.8 % (0.0-1.0); EOS # 0.2 10^3/uL (0.0-0.5); EOS % 3.2 % (0.0-3.0); HEMATOCRIT 40.1 % (36.0-47.0); HEMOGLOBIN 11.9 g/dl (12.0-15.5); LYMPH # 1.6 10^3/uL (1.5-5.0); LYMPH % 21.8 % (24.0-44.0); MEAN CORPUSCULAR HEMOGLOBIN 26.7 pg (27.0-33.0); MEAN CORPUSCULAR HGB CONC 29.7 g/dl (32.0-36.5); MEAN CORPUSCULAR VOLUME 89.9 fl (80.0-96.0); MONO # 0.6 10^3/uL (0.0-0.8); MONO % 8.6 % (0.0-5.0); NEUTROPHILS # 4.8 10^3/uL (1.5-8.5); NEUTROPHILS % 64.9 % (36.0-66.0); PLATELET COUNT, AUTOMATED 291 10^3/uL (150-450); RED BLOOD COUNT 4.46 10^6/uL (4.00-5.40); WHITE BLOOD COUNT 7.4 10^3/uL (4.0-10.0)
[2019-06-02 17:04] LABS: CREATININE FOR GFR 1.37 MG/DL (0.55-1.30); GLOMERULAR FILTRATION RATE 40.5 (>39); POTASSIUM SERUM 4.6 MEQ/L (3.5-5.1)
== END ==
LOC: M LRY 14:24
PROVIDERS: ATTEND Physician Assistant
DX: D64.9 Anemia, unspecified (principal)

== ENCOUNTER → 2019-07-10 | Outpatient (REF) | payer MEDICARE ==
[2019-07-10 12:02] LABS: BASO % 0.4 % (0.0-1.0); EOS # 0.3 10^3/uL (0.0-0.5); EOS % 3.2 % (0.0-3.0); HEMATOCRIT 35.9 % (36.0-47.0); HEMOGLOBIN 10.6 g/dl (12.0-15.5); MEAN CORPUSCULAR HEMOGLOBIN 28.3 pg (27.0-33.0); MEAN CORPUSCULAR HGB CONC 29.5 g/dl (32.0-36.5); MEAN CORPUSCULAR VOLUME 95.7 fl (80.0-96.0); MONO # 0.7 10^3/uL (0.0-0.8); MONO % 7.9 % (0.0-5.0); NEUTROPHILS # 6.9 10^3/uL (1.5-8.5); NEUTROPHILS % 76.6 % (36.0-66.0); PLATELET COUNT, AUTOMATED 273 10^3/uL (150-450); RED BLOOD COUNT 3.75 10^6/uL (4.00-5.40)
== END ==
LOC: M SFHCLERA 09:58
PROVIDERS: ATTEND Nurse Practitioner Family
DX: D62 Acute posthemorrhagic anemia (principal)
CPT/HCPCS: 85025; G0463

== ENCOUNTER 2019-07-31 07:15 | Emergency (ER) | payer MEDICARE ==
[~2019-07-31] VITALS: Ht 167.6 cm; Wt 95.9 kg
[2019-07-31] MEDS ORDERED: MECLIZINE 25 MG TABLET PO ONE (08:00)
[2019-07-31 08:09] LABS: BASO % 0.7 % (0.0-1.0); EOS # 0.3 10^3/uL (0.0-0.5); EOS % 5.1 % (0.0-3.0); HEMATOCRIT 34.6 % (36.0-47.0); HEMOGLOBIN 10.7 g/dl (12.0-15.5); LYMPH # 0.8 10^3/uL (1.5-5.0); LYMPH % 13.7 % (24.0-44.0); MEAN CORPUSCULAR HEMOGLOBIN 28.9 pg (27.0-33.0); MEAN CORPUSCULAR HGB CONC 30.9 g/dl (32.0-36.5); MEAN CORPUSCULAR VOLUME 93.5 fl (80.0-96.0); MONO # 0.6 10^3/uL (0.0-0.8); MONO % 10.3 % (0.0-5.0); NEUTROPHILS # 4.1 10^3/uL (1.5-8.5); PLATELET COUNT, AUTOMATED 229 10^3/uL (150-450); WHITE BLOOD COUNT 5.9 10^3/uL (4.0-10.0)
[2019-07-31] MEDS ORDERED: NS 500 ML IV ONE ×2 (08:15→09:30)
[2019-07-31 08:36] LABS: BLOOD UREA NITROGEN 25 MG/DL (7-18); CALCIUM LEVEL 8.1 MG/DL (8.8-10.2); CARBON DIOXIDE LEVEL 25 MEQ/L (21-32); CHLORIDE LEVEL 110 MEQ/L (98-107); CREATININE FOR GFR 1.52 MG/DL (0.55-1.30); GLOMERULAR FILTRATION RATE 35.8 (>39); GLUCOSE, FASTING 185 MG/DL (70-100); POTASSIUM SERUM 4.9 MEQ/L (3.5-5.1); SODIUM LEVEL 142 MEQ/L (136-145)
--- NOTE | 2019-07-31 08:54 | REPVR ---
PROCEDURE INFORMATION: Exam: CT Head Without Contrast Exam date and time: 07/31/2019 8:08 AM Age: 74 years old Clinical indication: Pain; Headache; Additional info: Head injury TECHNIQUE: Imaging protocol: Computed tomography of the head without contrast. Radiation optimization: All CT scans at this facility use at least one of these dose optimization techniques: automated exposure control; mA and/or kV adjustment per patient size (includes targeted exams where dose is matched to clinical indication); or iterative reconstruction. COMPARISON: No relevant prior studies available. FINDINGS: Brain: There is low attenuation abnormality in the periventricular white matter, likely reflecting chronic microvascular ischemic disease. Ventricles: Normal. No ventriculomegaly. Bones/joints: Unremarkable. No acute fracture. Sinuses: There is an air-fluid level in the sphenoid sinus. Mastoid air cells: There is moderate left mastoid disease. Soft tissues: Unremarkable. IMPRESSION: 1. No acute intracranial findings identified. Please refer to incidental findings in body of report. 2. There is an air-fluid level in the sphenoid sinus. 3. There is moderate left mastoid disease. Electronically signed by: Ashvin Burgos On 07/31/2019 08:53:59 AM
--- NOTE | 2019-07-31 08:59 | REPVR ---
PROCEDURE INFORMATION: Exam: CT Cervical Spine Without Contrast Exam date and time: 07/31/2019 8:08 AM Age: 74 years old Clinical indication: Pain; Other: Head injury TECHNIQUE: Imaging protocol: Computed tomography images of the cervical spine without contrast. Radiation optimization: All CT scans at this facility use at least one of these dose optimization techniques: automated exposure control; mA and/or kV adjustment per patient size (includes targeted exams where dose is matched to clinical indication); or iterative reconstruction. COMPARISON: US Duplex,carotid (complete) 04/12/2018 1:15 PM FINDINGS: Vertebrae: No acute fracture. Normal alignment. Discs/Spinal canal/Neural foramina: There are multilevel degenerative changes including disc space narrowing, uncovertebral joint arthropathy, and hypertrophic spur formation. Soft tissues: Unremarkable. Mastoid air cells: There is moderate left mastoid disease. Lungs: There are bilateral emphysematous changes. IMPRESSION: 1. No acute findings are identified. Please see above report for incidental findings. 2. There is moderate left mastoid disease. Electronically signed by: Ashvin Burgos On 07/31/2019 08:59:35 AM
[2019-07-31 09:26] LABS: CK-MB VALUE MASS 1.1 NG/ML (<3.6); CPK CREATINE PHOSPHOKINASE 52 U/L (26-192); MB/CK RELATIVE INDEX 2.12 (< OR =4); TROPONIN I < 0.02 NG/ML (< 0.10)
[2019-07-31 15:45] VITALS: BP 98/54
[2019-07-31] MEDS ORDERED: physical therapy (16:50)
[2019-07-31] MEDS ORDERED: rolling walker (16:53)
--- NOTE | 2019-07-31 17:17 | ECGEPIP ---
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
--- NOTE | 2019-08-05 11:39 | ED PDOC ---
Post-Departure Follow-Up marium chowdary faxed formal report of ct c spine for fu Jennifer Brock MD Aug 05, 2019 11:39
== END 2019-07-31 17:29 | disposition home or self-care (01) ==
LOC: M ED 07:15
DX: H81.10 Benign paroxysmal vertigo, unspecified ear (principal); I48.91 Unspecified atrial fibrillation; A69.20 Lyme disease, unspecified; Z79.899 Other long term (current) drug therapy; Z79.01 Long term (current) use of anticoagulants; Z87.891 Personal history of nicotine dependence

== ENCOUNTER 2019-08-01 08:37 | Outpatient (RCR) | payer MEDICARE ==
[~2019-08-01 08:37] MED LIST changes: +physical therapy; +rolling walker
== END 2019-08-26 ==
LOC: M PT 08:37
PROVIDERS: ATTEND Nurse Practitioner Family
DX: Z51.89 Encounter for other specified aftercare (principal); H81.90 Unspecified disorder of vestibular function, unspecified ear

== ENCOUNTER → 2019-10-03 | Outpatient (CLI) | payer MEDICARE ==
[~2019-10-03] MED LIST changes: +VITAD1000T PO
== END ==
LOC: M LABSMTC 11:05
PROVIDERS: ATTEND Anesthesiology
DX: Z01.812 Encounter for preprocedural laboratory examination (principal); Z11.59 Encounter for screening for other viral diseases

== ENCOUNTER 2019-10-06 12:47 | Day surgery (SDC) | payer MEDICARE ==
[~2019-10-06] VITALS: Ht 167.6 cm; Wt 96.8 kg
[2019-10-06] MEDS ORDERED: LIDOCAINE VISCOUS 2% SOLN 15ML UDC As Ordered ONE (13:40)
[2019-10-06] MEDS ORDERED: MEPERIDINE 50 MG/ML 1ML VIAL (J2175) As Ordered ONE (13:41)
[2019-10-06] MEDS ORDERED: MIDAZOLAM INJ 2MG/2ML VIAL (J2250 PER 1MG) As Ordered ONE ×2 (14:14→14:15)
[2019-10-06] MEDS ORDERED: MIDAZOLAM INJ 2MG/2ML VIAL (J2250 PER 1MG) IV ONE ×3 (14:27→14:32)
[2019-10-06 15:07] VITALS: BP 118/66
--- NOTE | 2019-10-06 15:14 | T-ECHO ---
DATE OF PROCEDURE: 10/06/2019 PREPROCEDURE DIAGNOSIS: 45-day post Watchman, left atrial closure device transesophageal echocardiogram (SERAFIN). POSTPROCEDURE DIAGNOSIS: 45-day post Watchman, left atrial closure device transesophageal echocardiogram (SERAFIN). FINDINGS: Satisfactory positioning of Watchman left atrial closure device with no residual gap and without thrombus. PROCEDURE PERFORMED BY: Doni Perales MD CUPROUS CHLORIDE HELPER: None. IV SEDATION: Midazolam 6 mg IV. COMPLICATIONS: None. PROCEDURE DESCRIPTION: The patient received viscus lidocaine to gargle and swallow. Following she received a total of 6 mg midazolam IV for light conscious sedation. Esophageal intubation is accomplished by Dr. Perales without difficulty using a 3D Peters transesophageal echocardiogram probe. The esophageal intubation was accomplished without difficulty. The left atrial appendage was completely and successfully occluded by the Watchman device without any gaps and there was no thrombus on the Watchman device. The Watchman device was viewed in the 0-degree, 45-degree, and 90-degree and 135-degree projections. The left atrium appear enlarged. The atrial septum was intact anatomically and by color flow Doppler. Right atrium appeared to be at least mildly enlarged. Left ventricle appeared normal in size and systolic function, LVEF 70% by visual estimate. Gastric views were technically difficult. The mitral valve appeared structurally functional. Mild to perhaps mild-moderate mitral regurgitation was present. No mitral valve collapse. No failed segments. Pulmonary vein flow by pulsed wave Doppler in the left upper pulmonary vein was normal. Atrial septum was intact anatomically and by color flow Doppler. No atrial septal defects seen. Aortic valve was three-cuspid and appeared structurally functional. No aortic regurgitation. Tricuspid leaflets appeared structurally functional. Moderate tricuspid regurgitation. Moderate tricuspid regurgitation was present. Pulmonic valve was only moderately well visualized, normal. No pericardial effusion. Right ventricle appeared normal in systolic function. Limited views of the descending thoracic aorta and distal aortic arch appeared normal. CONCLUSIONS: 1. Satisfactory placement of Watchman left atrial closure device without residual gap and without thrombus. 2. Normal left ventricle size and systolic function. LVEF 70% by visual estimate. No regional wall motion abnormalities of the left ventricle. 3. No atrial septal defect. 4. Visual appearance of at least mild dilatation of the left atrium and of the right atrium.
== END 2019-10-06 15:41 | disposition home or self-care (01) ==
LOC: M OPP 12:47
PROVIDERS: ATTEND Internal Medicine Cardiovascular Disease
DX: Z51.89 Encounter for other specified aftercare (principal); Z95.818 Presence of other cardiac implants and grafts; I48.91 Unspecified atrial fibrillation
CPT/HCPCS: 93312; 93320; 93325; J2175; J2250

== ENCOUNTER 2020-03-08 16:42 | Emergency (ER) | payer MEDICARE ==
[~2020-03-08] VITALS: Ht 167.6 cm; Wt 90.9 kg
[~2020-03-08 16:42] MED LIST changes: -CVS1KIT XX; -FREEMIS42 TOP; -METF500T13 PO
[2020-03-08 16:47] VITALS: BP 122/58
[2020-03-08] MEDS ORDERED: HumuLIN R (REGULAR) INSULIN (NovoLIN R) **100U/ML** PER UNIT IV ONE ×2 (17:00→18:15)
[2020-03-08] MEDS ORDERED: NS 1,000 ML IV ONE ×3 (17:00→18:15)
[2020-03-08] MEDS ORDERED: METF500T13 PO (17:35)
[2020-03-08] MEDS ORDERED: FREEMIS42 TOP (17:36)
[2020-03-08] MEDS ORDERED: CVS1KIT XX (17:37)
[2020-03-08 18:16] LABS: CALCIUM LEVEL 8.6 MG/DL (8.8-10.2); CREATININE FOR GFR 1.49 MG/DL (0.55-1.30); GLOMERULAR FILTRATION RATE 36.6 (>39); POTASSIUM SERUM 4.4 MEQ/L (3.5-5.1)
[2020-03-08] MEDS ORDERED: metFORMIN (GLUCOPHAGE) 500 MG TAB PO ONE (18:30)
[2020-03-08 18:51] LABS: HEMOGLOBIN A1c 13.9 %
== END 2020-03-08 20:01 | disposition home or self-care (01) ==
LOC: EDBD 16:42 → M ED 16:42
DX: E11.65 Type 2 diabetes mellitus with hyperglycemia (principal); I48.91 Unspecified atrial fibrillation; D64.9 Anemia, unspecified; Z79.51 Long term (current) use of inhaled steroids; Z79.899 Other long term (current) drug therapy; Z87.891 Personal history of nicotine dependence
CPT/HCPCS: 80047; 80048; 81002; 82948; 83036; 87070; 87077; 87086; 87186; 96361; 96374; 96375; 99284; G0463

== ENCOUNTER → 2020-03-08 | Outpatient (REF) | payer MEDICARE ==
[~2020-03-08] MED LIST changes: +CVS1KIT XX; +D31000TA2 PO; +FREEMIS42 TOP; +METF500T13 PO; -VITAD1000T PO
== END ==
LOC: M SFHCLERA 11:28
PROVIDERS: ATTEND Nurse Practitioner Family
DX: N89.8 Other specified noninflammatory disorders of vagina (principal); R30.0 Dysuria

== ENCOUNTER → 2020-05-10 | Outpatient (CLI) | payer MEDICARE ==
[~2020-05-10] MED LIST changes: +CVS1KIT XX; +FREEMIS42 TOP; +METF500T13 PO
--- NOTE | 2020-05-10 16:24 | REP ---
INDICATION: PERSONAL HISTORY OF NICOTINE DEPENDENCE. COMPARISON: Chest CT with IV contrast dated 10/11/2018. TECHNIQUE: The study is performed without IV contrast. The images are presented at lung windowing only. FINDINGS: There are no lung nodules or masses. There are no infiltrates or pleural effusions. IMPRESSION: Category [address] low-dose lung screening CT of the chest. Probability of malignancy is less than 1%. Depending on risk factors consider annual follow-up low-dose lung screening chest CT. <Electronically signed by Ishaan Loco > 05/10/20 [id number]
== END ==
LOC: M RAD 12:51
PROVIDERS: ATTEND Internal Medicine Pulmonary Disease
DX: Z87.891 Personal history of nicotine dependence (principal)

== ENCOUNTER → 2020-07-01 | Outpatient (CLI) | payer MEDICARE ==
[~2020-07-01] MED LIST changes: +ESCI10TA16 PO; -ESCI10TA2 PO
[2020-07-01 11:51] LABS: HEMOGLOBIN A1c 6.8 %
== END ==
LOC: M LAB 09:00
PROVIDERS: ATTEND Nurse Practitioner Family
DX: E11.65 Type 2 diabetes mellitus with hyperglycemia (principal)

== ENCOUNTER → 2020-07-09 | Outpatient (CLI) | payer MEDICARE ==
[2020-07-09 13:11] LABS: BASO % 0.6 % (0.0-1.0); EOS # 0.6 10^3/uL (0.0-0.5); EOS % 9.3 % (0.0-3.0); HEMATOCRIT 44.9 % (36.0-47.0); LYMPH # 1.2 10^3/uL (1.5-5.0); LYMPH % 19.1 % (24.0-44.0); MEAN CORPUSCULAR HEMOGLOBIN 30.2 pg (27.0-33.0); MEAN CORPUSCULAR HGB CONC 31.2 g/dl (32.0-36.5); MEAN CORPUSCULAR VOLUME 96.8 fl (80.0-96.0); MONO # 0.5 10^3/uL (0.0-0.8); MONO % 8.1 % (2.0-8.0); NEUTROPHILS % 62.6 % (36.0-66.0); PLATELET COUNT, AUTOMATED 231 10^3/uL (150-450); RED BLOOD COUNT 4.64 10^6/uL (4.00-5.40); WHITE BLOOD COUNT 6.5 10^3/uL (4.0-10.0)
[2020-07-09 13:34] LABS: ALBUMIN 3.6 GM/DL (3.2-5.2); BILIRUBIN,TOTAL 0.3 MG/DL (0.2-1.0); CALCIUM LEVEL 9.3 MG/DL (8.8-10.2); CHOLESTEROL RISK RATIO 4.078 (<5); CREATININE FOR GFR 1.35 MG/DL (0.55-1.30); GLOMERULAR FILTRATION RATE 40.9 (>39); POTASSIUM SERUM 4.6 MEQ/L (3.5-5.1); TOTAL PROTEIN 6.4 GM/DL (6.4-8.2)
[2020-07-09 13:41] LABS: TOTAL 25(OH) VITAMIN D 29.4 NG/ML (30.0-100.0)
== END ==
LOC: M LAB 12:16
PROVIDERS: ATTEND Nurse Practitioner Family
DX: E55.9 Vitamin D deficiency, unspecified (principal); I10 Essential (primary) hypertension; E78.2 Mixed hyperlipidemia; F34.1 Dysthymic disorder

== ENCOUNTER 2020-08-04 10:27 | Emergency (ER) | payer MEDICARE ==
[~2020-08-04] VITALS: Ht 167.6 cm; Wt 94.2 kg
--- NOTE | 2020-08-04 11:27 | REP ---
INDICATION: fall injury COMPARISON: None. TECHNIQUE: Frontal view of the chest with multiple views of the left hemithorax. FINDINGS: Frontal view of the chest demonstrates no acute cardiopulmonary process, contusion, effusion, or pneumothorax. Multiple views of the left hemithorax demonstrates no definite or displaced rib fracture. However, a very subtle nondisplaced transverse fracture along the lateral aspect of the 7th rib cannot be excluded and should be correlated with point of tenderness. IMPRESSION: No definite rib fracture. As above. Correlation is recommended. <Electronically signed by Praveen Arroyo > 08/04/20 [id number]
[2020-08-04 11:50] VITALS: BP 132/58
== END 2020-08-04 12:03 | disposition home or self-care (01) ==
LOC: M ED 10:27
DX: S22.32XA Fracture of one rib, left side, initial encounter for closed fracture (principal); W18.39XA Other fall on same level, initial encounter; Y92.018 Other place in single-family (private) house as the place of occurrence of the external cause; E11.9 Type 2 diabetes mellitus without complications; I10 Essential (primary) hypertension; J44.9 Chronic obstructive pulmonary disease, unspecified; E78.5 Hyperlipidemia, unspecified; I48.91 Unspecified atrial fibrillation; Z95.5 Presence of coronary angioplasty implant and graft; Z79.899 Other long term (current) drug therapy; Z79.01 Long term (current) use of anticoagulants; Z79.84 Long term (current) use of oral hypoglycemic drugs; Z87.891 Personal history of nicotine dependence

== ENCOUNTER → 2020-10-05 | Outpatient (CLI) | payer MEDICARE ==
[2020-10-05 13:23] LABS: CREATININE, URINE 96.8 MG/DL; MALB URINE SIEMENS 40.2 MG/L; MAU/CREAT RATIO 41.5 MCG/MG (0.0-30.0)
== END ==
LOC: M LAB 11:54
PROVIDERS: ATTEND Nurse Practitioner Family
DX: E11.9 Type 2 diabetes mellitus without complications (principal)
CPT/HCPCS: 36415; 82043; 83036; G0463

== ENCOUNTER → 2021-04-01 | Outpatient (CLI) | payer MEDICARE ==
[2021-04-01 11:40] LABS: BASO # 0.1 10^3/uL (0.0-0.2); BASO % 0.9 % (0.0-1.0); EOS # 0.5 10^3/uL (0.0-0.5); HEMATOCRIT 42.7 % (36.0-47.0); HEMOGLOBIN 13.1 g/dl (12.0-15.5); LYMPH # 1.1 10^3/uL (1.5-5.0); LYMPH % 16.7 % (24.0-44.0); MEAN CORPUSCULAR HEMOGLOBIN 28.2 pg (27.0-33.0); MEAN CORPUSCULAR HGB CONC 30.7 g/dl (32.0-36.5); MONO # 0.6 10^3/uL (0.0-0.8); MONO % 8.3 % (2.0-8.0); NEUTROPHILS # 4.6 10^3/uL (1.5-8.5); NEUTROPHILS % 66.7 % (36.0-66.0); PLATELET COUNT, AUTOMATED 179 10^3/uL (150-450); RED BLOOD COUNT 4.64 10^6/uL (4.00-5.40); WHITE BLOOD COUNT 6.8 10^3/uL (4.0-10.0)
[2021-04-01 12:05] LABS: ALBUMIN 3.3 GM/DL (3.2-5.2); BILIRUBIN,TOTAL 0.4 MG/DL (0.2-1.0); CALCIUM LEVEL 8.9 MG/DL (8.8-10.2); CHOLESTEROL RISK RATIO 4.531 (<5); CREATININE FOR GFR 1.79 MG/DL (0.55-1.30); GLOMERULAR FILTRATION RATE 29.6 (>39); POTASSIUM SERUM 4.6 MEQ/L (3.5-5.1); TOTAL PROTEIN 6.2 GM/DL (6.4-8.2)
[2021-04-01 12:14] LABS: MALB URINE SIEMENS 77.1 MG/L; MAU/CREAT RATIO 72.7 MCG/MG (0.0-30.0); TOTAL 25(OH) VITAMIN D 32.4 NG/ML (30.0-100.0)
[2021-04-01 13:33] LABS: HEMOGLOBIN A1c 7.3 %
== END ==
LOC: M LAB 10:40
PROVIDERS: ATTEND Nurse Practitioner Family
DX: E55.9 Vitamin D deficiency, unspecified (principal); I10 Essential (primary) hypertension; E11.65 Type 2 diabetes mellitus with hyperglycemia; E78.2 Mixed hyperlipidemia

== ENCOUNTER → 2021-04-19 | Outpatient (REF) | payer MEDICARE ==
[2021-04-20 13:29] LABS: ALBUMIN 3.6 GM/DL (3.2-5.2); BILIRUBIN,TOTAL 0.3 MG/DL (0.2-1.0); CALCIUM LEVEL 9.6 MG/DL (8.8-10.2); CREATININE FOR GFR 2.26 MG/DL (0.55-1.30); GLOMERULAR FILTRATION RATE 22.6 (>39); POTASSIUM SERUM 6.3 MEQ/L (3.5-5.1); TOTAL PROTEIN 6.6 GM/DL (6.4-8.2)
== END ==
LOC: M SFHCCLAY 15:19
PROVIDERS: ATTEND Nurse Practitioner Family
DX: N18.32 Chronic kidney disease, stage 3b (principal)

== ENCOUNTER → 2021-05-02 | Outpatient (CLI) | payer MEDICARE | LOC: M LABSMTC 12:46 | PROVIDERS: ATTEND Pediatrics | DX: Z20.822 Contact with and (suspected) exposure to COVID-19 (principal) | CPT/HCPCS: C9803; U0003 ==

== ENCOUNTER 2021-06-27 10:09 | Inpatient (IN) | payer MEDICARE ==
[~2021-06-27] VITALS: Ht 167.6 cm; Wt 92.5 kg
[~2021-06-27 10:09] MED LIST changes: +LOSA100T45 PO; -LOSA100T50 PO; +LOSA25TA13 PO; -LOSA25TA14 PO
[2021-06-27 11:44] LABS: BASO % 0.7 % (0.0-1.0); EOS # 0.2 10^3/uL (0.0-0.5); EOS % 3.2 % (0.0-3.0); HEMOGLOBIN 13.3 g/dl (12.0-15.5); LYMPH % 16.8 % (24.0-44.0); MEAN CORPUSCULAR HEMOGLOBIN 28.7 pg (27.0-33.0); MEAN CORPUSCULAR HGB CONC 32.4 g/dl (32.0-36.5); MEAN CORPUSCULAR VOLUME 88.4 fl (80.0-96.0); MONO # 0.6 10^3/uL (0.0-0.8); MONO % 10.3 % (2.0-8.0); NEUTROPHILS # 4.1 10^3/uL (1.5-8.5); NEUTROPHILS % 68.7 % (36.0-66.0); PLATELET COUNT, AUTOMATED 188 10^3/uL (150-450); RED BLOOD COUNT 4.64 10^6/uL (4.00-5.40)
[2021-06-27] MEDS ORDERED: NS 1,000 ML IV ONE (11:50)
[2021-06-27 11:52] LABS: HEMOGLOBIN A1c 11.8 %
[2021-06-27 12:18] LABS: CALCIUM LEVEL 8.9 MG/DL (8.8-10.2); CREATININE FOR GFR 1.87 MG/DL (0.55-1.30); POTASSIUM SERUM 4.7 MEQ/L (3.5-5.1)
[2021-06-27 13:36] LABS: AMPHETAMINES LEVEL URINE NEGATIVE (NEGATIVE); BARBITURATES URINE NEGATIVE (NEGATIVE); BENZODIAZEPINES URINE NEGATIVE (NEGATIVE); CANNABINOIDS URINE NEGATIVE (NEGATIVE); COCAINE METABOLITE URINE NEGATIVE (NEGATIVE); METHADONE URINE NEGATIVE (NEGATIVE); OPIATES URINE NEGATIVE (NEGATIVE); PHENCYCLIDINE URINE NEGATIVE (NEGATIVE)
[2021-06-27] MEDS ORDERED: DEXTROSE 50% 50 ML SYRINGE IV PRN (13:55)
[2021-06-27] MEDS ORDERED: GLUCAGON INJ 1MG VIAL SC PRN (13:55)
[2021-06-27] MEDS ORDERED: GLUCOSE 4GM CHEW TABLET PO PRN (13:55)
[2021-06-27] MEDS ORDERED: LEVEMIR (INSULIN DETEMIR) 1 UNITS/0.01ML SC ONE (13:55)
[2021-06-27 13:58] LABS: ACETAMINOPHEN LEVEL < 2.0 UG/ML (10.0-30.0); ETHYL ALCOHOL (ETHANOL) < 0.003 % (0.000-0.010); SALICYLATE LEVEL < 1.7 MG/DL (5.0-30.0)
[2021-06-27] MEDS ORDERED: LEXA1TAB PO (14:00)
[2021-06-27] MEDS ORDERED: METF-839 PO (14:00)
[2021-06-27 14:14] LABS: RSV AMPLIFICATION NEGATIVE (NEGATIVE)
[2021-06-27] MEDS: NS 1,000 ML IV SCH ×2 (14:26→20:39)
[2021-06-27] MEDS ORDERED: HYDR50TA70 PO (15:12)
[2021-06-27] MEDS ORDERED: HOME MED LIST COMPLETE! XX SCH (15:15)
[2021-06-27] MEDS ORDERED: HumaLOG INSULIN (NovoLOG) PER UNIT SC SCH (17:30)
[2021-06-27] MEDS: HumaLOG INSULIN (NovoLOG) PER UNIT SC SCH ×2 (17:59→20:40)
[2021-06-27 19:25] VITALS: BP 146/79
[2021-06-27] MEDS: ASPIRIN 81MG ENTERIC TABLET PO SCH (20:39)
[2021-06-27] MEDS: METOPROLOL SUCC *XL* 25MG TAB (TopROL *XL*) PO SCH (20:40)
[2021-06-27] MEDS: HEPARIN SOD (PORCINE) 5000UNITS/ML 1ML VIAL/SYRINGE SQ SCH (20:41)
[2021-06-27] MEDS: RAMELTEON 8 MG TAB (ROZEREM) PO PRN (22:02)
[2021-06-28 04:20] VITALS: BP 135/70
[2021-06-28] MEDS: NS 1,000 ML IV SCH ×2 (05:07→07:57)
[2021-06-28 06:49] LABS: BASO % 0.6 % (0.0-1.0); EOS # 0.3 10^3/uL (0.0-0.5); EOS % 6.1 % (0.0-3.0); HEMATOCRIT 34.4 % (36.0-47.0); HEMOGLOBIN 10.8 g/dl (12.0-15.5); LYMPH # 1.2 10^3/uL (1.5-5.0); LYMPH % 24.4 % (24.0-44.0); MEAN CORPUSCULAR HEMOGLOBIN 28.2 pg (27.0-33.0); MEAN CORPUSCULAR HGB CONC 31.4 g/dl (32.0-36.5); MEAN CORPUSCULAR VOLUME 89.8 fl (80.0-96.0); MONO # 0.5 10^3/uL (0.0-0.8); MONO % 10.6 % (2.0-8.0); NEUTROPHILS # 2.9 10^3/uL (1.5-8.5); NEUTROPHILS % 57.9 % (36.0-66.0); PLATELET COUNT, AUTOMATED 156 10^3/uL (150-450); RED BLOOD COUNT 3.83 10^6/uL (4.00-5.40); WHITE BLOOD COUNT 4.9 10^3/uL (4.0-10.0)
[2021-06-28 07:26] LABS: BLOOD UREA NITROGEN 25 MG/DL (7-18); CALCIUM LEVEL 7.6 MG/DL (8.8-10.2); CARBON DIOXIDE LEVEL 23 MEQ/L (21-32); CHLORIDE LEVEL 108 MEQ/L (98-107); CHOLESTEROL LEVEL 155 MG/DL (<200); CHOLESTEROL RISK RATIO 8.157 (<5); CREATININE FOR GFR 1.54 MG/DL (0.55-1.30); GLOMERULAR FILTRATION RATE 35.1 (>39); GLUCOSE, FASTING 350 MG/DL (70-100); HDL CHOLESTEROL 19 MG/DL (>40); NON-HDL-C 136 MG/DL; POTASSIUM SERUM 4.2 MEQ/L (3.5-5.1); SODIUM LEVEL 138 MEQ/L (136-145); TRIGLYCERIDES LEVEL 691 MG/DL (<150)
[2021-06-28] MEDS: HumaLOG INSULIN (NovoLOG) PER UNIT SC SCH ×4 (07:57→21:48)
[2021-06-28] MEDS: HEPARIN SOD (PORCINE) 5000UNITS/ML 1ML VIAL/SYRINGE SQ SCH ×2 (07:57→21:48)
[2021-06-28 14:00] VITALS: BP 130/76
[2021-06-28] MEDS: ASPIRIN 81MG ENTERIC TABLET PO SCH (21:47)
[2021-06-28] MEDS: RAMELTEON 8 MG TAB (ROZEREM) PO PRN (21:47)
[2021-06-28] MEDS: METOPROLOL SUCC *XL* 25MG TAB (TopROL *XL*) PO SCH (21:47)
[2021-06-28 22:00] VITALS: BP 133/71
[2021-06-29 06:00] VITALS: BP 133/71
[2021-06-29 06:11] LABS: BASO % 0.9 % (0.0-1.0); EOS # 0.3 10^3/uL (0.0-0.5); EOS % 6.3 % (0.0-3.0); HEMATOCRIT 35.4 % (36.0-47.0); HEMOGLOBIN 11.2 g/dl (12.0-15.5); LYMPH # 1.1 10^3/uL (1.5-5.0); LYMPH % 23.1 % (24.0-44.0); MEAN CORPUSCULAR HEMOGLOBIN 28.9 pg (27.0-33.0); MEAN CORPUSCULAR HGB CONC 31.6 g/dl (32.0-36.5); MEAN CORPUSCULAR VOLUME 91.2 fl (80.0-96.0); MONO # 0.4 10^3/uL (0.0-0.8); MONO % 9.6 % (2.0-8.0); NEUTROPHILS # 2.7 10^3/uL (1.5-8.5); NEUTROPHILS % 59.4 % (36.0-66.0); PLATELET COUNT, AUTOMATED 158 10^3/uL (150-450); RED BLOOD COUNT 3.88 10^6/uL (4.00-5.40); WHITE BLOOD COUNT 4.6 10^3/uL (4.0-10.0)
[2021-06-29 06:29] LABS: CALCIUM LEVEL 8.2 MG/DL (8.8-10.2); CREATININE FOR GFR 1.5 MG/DL (0.55-1.30); GLOMERULAR FILTRATION RATE 36.1 (>39); POTASSIUM SERUM 4.4 MEQ/L (3.5-5.1)
[2021-06-29] MEDS: HumaLOG INSULIN (NovoLOG) PER UNIT SC SCH ×4 (08:08→20:24)
[2021-06-29] MEDS: HEPARIN SOD (PORCINE) 5000UNITS/ML 1ML VIAL/SYRINGE SQ SCH ×2 (08:15→20:23)
[2021-06-29] MEDS: LEVEMIR (INSULIN DETEMIR) 1 UNITS/0.01ML SC SCH ×2 (09:23→20:24)
[2021-06-29 14:00] VITALS: BP 133/63
[2021-06-29 20:10] VITALS: BP 134/64
[2021-06-29 20:25] VITALS: BP 134/64
[2021-06-29] MEDS: ASPIRIN 81MG ENTERIC TABLET PO SCH (20:25)
[2021-06-29] MEDS: METOPROLOL SUCC *XL* 25MG TAB (TopROL *XL*) PO SCH (20:25)
[2021-06-30 04:00] VITALS: BP 164/86
[2021-06-30 06:58] LABS: BASO % 0.9 % (0.0-1.0); EOS # 0.3 10^3/uL (0.0-0.5); EOS % 6.2 % (0.0-3.0); HEMATOCRIT 36.9 % (36.0-47.0); HEMOGLOBIN 11.6 g/dl (12.0-15.5); LYMPH # 1.2 10^3/uL (1.5-5.0); MEAN CORPUSCULAR HEMOGLOBIN 29.1 pg (27.0-33.0); MEAN CORPUSCULAR HGB CONC 31.4 g/dl (32.0-36.5); MEAN CORPUSCULAR VOLUME 92.5 fl (80.0-96.0); MONO # 0.4 10^3/uL (0.0-0.8); MONO % 9.2 % (2.0-8.0); NEUTROPHILS # 2.6 10^3/uL (1.5-8.5); NEUTROPHILS % 56.4 % (36.0-66.0); PLATELET COUNT, AUTOMATED 166 10^3/uL (150-450); RED BLOOD COUNT 3.99 10^6/uL (4.00-5.40); WHITE BLOOD COUNT 4.7 10^3/uL (4.0-10.0)
[2021-06-30 07:23] LABS: CALCIUM LEVEL 8.4 MG/DL (8.8-10.2); CREATININE FOR GFR 1.44 MG/DL (0.55-1.30); GLOMERULAR FILTRATION RATE 37.9 (>39); POTASSIUM SERUM 4.3 MEQ/L (3.5-5.1)
[2021-06-30] MEDS: HEPARIN SOD (PORCINE) 5000UNITS/ML 1ML VIAL/SYRINGE SQ SCH (09:33)
[2021-06-30] MEDS: LEVEMIR (INSULIN DETEMIR) 1 UNITS/0.01ML SC SCH (09:33)
[2021-06-30] MEDS: HumaLOG INSULIN (NovoLOG) PER UNIT SC SCH ×2 (09:36→12:38)
[2021-06-30] MEDS ORDERED: ASPI-551 PO (11:36)
[2021-06-30 14:00] VITALS: BP 131/68
== END 2021-06-30 16:10 | disposition home or self-care (01) | DRG 638 ==
LOC: M ED 10:09 → M ED INP 13:55 → ENRESERV 15:00 → M MS5PR 15:50
PROVIDERS: ADMIT Internal Medicine Nephrology; ATTEND Internal Medicine
DX: E11.65 Type 2 diabetes mellitus with hyperglycemia (principal); R45.851 Suicidal ideations; N18.4 Chronic kidney disease, stage 4 (severe); F32.A Depression, unspecified; I12.9 Hypertensive chronic kidney disease with stage 1 through stage 4 chronic kidney disease, or unspecified chronic kidney disease; I25.10 Atherosclerotic heart disease of native coronary artery without angina pectoris; Z95.5 Presence of coronary angioplasty implant and graft; Z95.818 Presence of other cardiac implants and grafts; I48.91 Unspecified atrial fibrillation; J44.9 Chronic obstructive pulmonary disease, unspecified; Z20.822 Contact with and (suspected) exposure to COVID-19; Z79.84 Long term (current) use of oral hypoglycemic drugs; Z79.899 Other long term (current) drug therapy; Z91.14 Patient's other noncompliance with medication regimen; I08.1 Rheumatic disorders of both mitral and tricuspid valves; E78.5 Hyperlipidemia, unspecified; M19.90 Unspecified osteoarthritis, unspecified site; E55.9 Vitamin D deficiency, unspecified; H04.129 Dry eye syndrome of unspecified lacrimal gland; Z63.8 Other specified problems related to primary support group; Z66 Do not resuscitate

== ENCOUNTER 2022-10-13 13:35 | Observation (INO) | payer MEDICARE ==
[~2022-10-13] VITALS: Ht 167.6 cm; Wt 89.1 kg
[~2022-10-13 13:35] MED LIST changes: +ALBU2.5V10 INH; -ALBU83IN INH; +ASPI-551 PO; +CLOP75TA99 PO; -D31000TA2 PO; +HYDR50TA70 PO; +LEXA1TAB PO; -LOSA100T45 PO; +LOSA100T46 PO; +METF-839 PO; -PLAV1TAB2 PO; +VITA100093 PO
[2022-10-13 14:45] LABS: BASO # 0.1 10^3/uL (0.0-0.2); BASO % 0.6 % (0.0-1.0); EOS # 0.3 10^3/uL (0.0-0.5); EOS % 2.6 % (0.0-3.0); HEMATOCRIT 37.7 % (36.0-47.0); HEMOGLOBIN 11.6 g/dl (12.0-15.5); LYMPH # 1.1 10^3/uL (1.5-5.0); LYMPH % 10.6 % (24.0-44.0); MEAN CORPUSCULAR HEMOGLOBIN 27.9 pg (27.0-33.0); MEAN CORPUSCULAR HGB CONC 30.8 g/dl (32.0-36.5); MEAN CORPUSCULAR VOLUME 90.6 fl (80.0-96.0); MONO # 0.7 10^3/uL (0.0-0.8); MONO % 6.7 % (2.0-8.0); NEUTROPHILS # 8.5 10^3/uL (1.5-8.5); PLATELET COUNT, AUTOMATED 258 10^3/uL (150-450); RED BLOOD COUNT 4.16 10^6/uL (4.00-5.40); WHITE BLOOD COUNT 10.8 10^3/uL (4.0-10.0)
[2022-10-13] MEDS ORDERED: NS 500 ML IV ONE (14:45)
[2022-10-13 14:59] LABS: INR 0.99; PROTHROMBIN TIME 13.3 SECONDS (12.5-14.5)
[2022-10-13 15:00] LABS: PARTIAL THROMBOPLASTIN TIME 20.3 SECONDS (24.8-34.2)
[2022-10-13 15:18] LABS: CALCIUM LEVEL 8.5 MG/DL (8.3-10.6); CREATININE FOR GFR 2.11 MG/DL (0.55-1.30); GLOMERULAR FILTRATION RATE 24.3 (>39); MB/CK RELATIVE INDEX 1.69 (< OR =4); POTASSIUM SERUM 4.8 MMOL/L (3.5-5.1); RSV AMPLIFICATION NEGATIVE (NEGATIVE)
[2022-10-13 15:19] LABS: THYROID STIMULATING HORMONE 2.178 uIU/ML (0.55-4.78)
[2022-10-13 15:20] LABS: FREE T4 1.03 NG/DL (0.89-1.76)
[2022-10-13] MEDS ORDERED: ACETAMINOPHEN TAB 650MG DOSE (2X325MG) PO PRN (16:10)
[2022-10-13] MEDS ORDERED: GLIP5TAB8 PO (16:26)
[2022-10-13] MEDS ORDERED: FENO48TA8 PO (16:26)
[2022-10-13] MEDS ORDERED: ASPI81CH33 PO (16:26)
[2022-10-13] MEDS ORDERED: HOME MED LIST COMPLETE! XX SCH (16:30)
[2022-10-13] MEDS ORDERED: GLUCOSE 4GM CHEW TABLET PO PRN (16:55)
[2022-10-13] MEDS ORDERED: GLUCAGON INJ 1MG VIAL SC PRN (16:55)
[2022-10-13] MEDS ORDERED: DEXTROSE 50% 50ML SYRINGE IV PRN (16:55)
[2022-10-13] MEDS: NS 1,000 ML IV SCH (17:05)
[2022-10-13] MEDS: INSULIN LISPRO (NovoLOG) PER UNIT SC SCH ×2 (17:30→21:00)
[2022-10-13 18:20] VITALS: BP 122/65
[2022-10-13] MEDS ORDERED: glipiZIDE (GLUCOTROL) 5 MG TAB PO SCH (21:00)
[2022-10-13] MEDS ORDERED: METOPROLOL SUCC (TopROL XL) 50MG **XL** TAB PO SCH (21:00)
[2022-10-13] MEDS: ATORVASTATIN 20 MG TAB PO SCH (21:38)
[2022-10-13] MEDS: ASPIRIN 81MG CHEW TABLET PO SCH (21:38)
[2022-10-13] MEDS: hydrOXYzine 50 MG TAB PO PRN (21:39)
[2022-10-13] MEDS: HEPARIN SOD (PORCINE) 5000UNITS/ML 1ML VIAL/SYRINGE SQ SCH (21:39)
[2022-10-13] MEDS: FENOFIBRATE 48MG TABLET (TRICOR) PO SCH (21:39)
[2022-10-13 22:00] VITALS: BP 122/64
[2022-10-14] MEDS: NS 1,000 ML IV SCH (02:29)
[2022-10-14 05:20] VITALS: BP_SYST 123; BP_SYST 139; BP_DIAS 59; BP_DIAS 63
[2022-10-14 05:48] VITALS: BP 126/58
[2022-10-14 05:49] LABS: HEMATOCRIT 35.5 % (36.0-47.0); HEMOGLOBIN 10.5 g/dl (12.0-15.5); MEAN CORPUSCULAR HEMOGLOBIN 27.3 pg (27.0-33.0); MEAN CORPUSCULAR HGB CONC 29.6 g/dl (32.0-36.5); MEAN CORPUSCULAR VOLUME 92.4 fl (80.0-96.0); PLATELET COUNT, AUTOMATED 231 10^3/uL (150-450); RED BLOOD COUNT 3.84 10^6/uL (4.00-5.40); WHITE BLOOD COUNT 8.2 10^3/uL (4.0-10.0)
[2022-10-14 05:50] VITALS: BP 126/58
[2022-10-14 06:11] LABS: ALBUMIN 3.1 G/DL (3.2-5.2); BILIRUBIN,TOTAL 0.2 MG/DL (0.3-1.2); CALCIUM LEVEL 8.6 MG/DL (8.3-10.6); CREATININE FOR GFR 1.92 MG/DL (0.55-1.30); GLOMERULAR FILTRATION RATE 27.1 (>39); POTASSIUM SERUM 4.3 MMOL/L (3.5-5.1); TOTAL PROTEIN 5.4 G/DL (5.7-8.2)
[2022-10-14] MEDS: VITAMIN D 1,000 INTERNATIONAL UNITS TABLET PO SCH (08:45)
[2022-10-14] MEDS: INSULIN LISPRO (NovoLOG) PER UNIT SC SCH ×4 (08:45→20:14)
[2022-10-14] MEDS: ESCITALOPRAM OXALATE 10 MG TAB (LEXAPRO) PO SCH (08:45)
[2022-10-14] MEDS: FENOFIBRATE 48MG TABLET (TRICOR) PO SCH ×2 (08:45→20:22)
[2022-10-14] MEDS: HEPARIN SOD (PORCINE) 5000UNITS/ML 1ML VIAL/SYRINGE SQ SCH ×2 (08:46→20:22)
[2022-10-14] MEDS: NS 0.45% 1,000 ML IV SCH ×2 (08:46→18:11)
[2022-10-14 14:00] VITALS: BP 119/54
[2022-10-14 20:00] VITALS: BP 127/58
[2022-10-14] MEDS: ASPIRIN 81MG CHEW TABLET PO SCH (20:20)
[2022-10-14] MEDS: ATORVASTATIN 20 MG TAB PO SCH (20:21)
[2022-10-14 20:22] VITALS: BP 127/58
[2022-10-14] MEDS: hydrOXYzine 50 MG TAB PO PRN (20:22)
[2022-10-14] MEDS ORDERED: METOPROLOL SUCC *XL* 25MG TAB (TopROL *XL*) PO SCH (21:00)
[2022-10-15] MEDS: NS 0.45% 1,000 ML IV SCH (04:16)
[2022-10-15 05:21] LABS: HEMATOCRIT 33.6 % (36.0-47.0); MEAN CORPUSCULAR HEMOGLOBIN 27.1 pg (27.0-33.0); MEAN CORPUSCULAR HGB CONC 29.8 g/dl (32.0-36.5); MEAN CORPUSCULAR VOLUME 91.1 fl (80.0-96.0); PLATELET COUNT, AUTOMATED 206 10^3/uL (150-450); RED BLOOD COUNT 3.69 10^6/uL (4.00-5.40); WHITE BLOOD COUNT 6.5 10^3/uL (4.0-10.0)
[2022-10-15 05:51] LABS: ALBUMIN 2.9 G/DL (3.2-5.2); BILIRUBIN,TOTAL 0.2 MG/DL (0.3-1.2); CALCIUM LEVEL 8.4 MG/DL (8.3-10.6); CREATININE FOR GFR 1.91 MG/DL (0.55-1.30); GLOMERULAR FILTRATION RATE 27.3 (>39); TOTAL PROTEIN 5.2 G/DL (5.7-8.2)
[2022-10-15 06:00] VITALS: BP 126/58
[2022-10-15 06:06] VITALS: BP_SYST 122; BP_SYST 126; BP_SYST 127; BP_DIAS 57; BP_DIAS 58; BP_DIAS 60
[2022-10-15] MEDS ORDERED: METO1TAB32 PO (08:12)
[2022-10-15] MEDS: HEPARIN SOD (PORCINE) 5000UNITS/ML 1ML VIAL/SYRINGE SQ SCH (08:51)
[2022-10-15] MEDS: FENOFIBRATE 48MG TABLET (TRICOR) PO SCH (08:52)
[2022-10-15] MEDS: ESCITALOPRAM OXALATE 10 MG TAB (LEXAPRO) PO SCH (08:52)
[2022-10-15] MEDS: INSULIN LISPRO (NovoLOG) PER UNIT SC SCH (08:52)
[2022-10-15] MEDS: VITAMIN D 1,000 INTERNATIONAL UNITS TABLET PO SCH (08:52)
== END 2022-10-15 11:32 | disposition home or self-care (01) ==
LOC: EDBD 13:35 → M ED 13:35 → M ED INP 16:07 → M MSPAV 18:13
PROVIDERS: ADMIT Internal Medicine; ATTEND Internal Medicine
DX: R41.82 Altered mental status, unspecified (principal); N17.9 Acute kidney failure, unspecified; N18.30 Chronic kidney disease, stage 3 unspecified; R00.1 Bradycardia, unspecified; R47.81 Slurred speech; R29.700 NIHSS score 0; J98.11 Atelectasis; E11.9 Type 2 diabetes mellitus without complications; I25.10 Atherosclerotic heart disease of native coronary artery without angina pectoris; I48.91 Unspecified atrial fibrillation; I12.9 Hypertensive chronic kidney disease with stage 1 through stage 4 chronic kidney disease, or unspecified chronic kidney disease; Z95.5 Presence of coronary angioplasty implant and graft; E78.5 Hyperlipidemia, unspecified; J44.9 Chronic obstructive pulmonary disease, unspecified; I08.9 Rheumatic multiple valve disease, unspecified; F32.A Depression, unspecified; M19.90 Unspecified osteoarthritis, unspecified site; D50.9 Iron deficiency anemia, unspecified; Z79.899 Other long term (current) drug therapy; Z79.82 Long term (current) use of aspirin; Z95.818 Presence of other cardiac implants and grafts; Z87.891 Personal history of nicotine dependence
CPT/HCPCS: 36415; 70450; 71045; 80048; 80053; 82550; 82553; 83735; 84439; 84443; 84484; 85025; 85027; 85610; 85730; 87631; 93005; 93041; 93306; 93880; 94760; 96360; 96361; 96372; 97161; 97530; 99285; G0378; J1815

== ENCOUNTER → 2023-06-18 | Outpatient (CLI) | payer MEDICARE ==
[~2023-06-18] MED LIST changes: +ASPI81CH33 PO; +FENO48TA8 PO; +GLIP5TAB17 PO; +METO1TAB32 PO
== END ==
LOC: M PLARAD 10:28
PROVIDERS: ATTEND Internal Medicine Pulmonary Disease
DX: R91.8 Other nonspecific abnormal finding of lung field (principal)
CPT/HCPCS: 78815; A9552

== ENCOUNTER → 2023-06-20 | Outpatient (CLI) | payer MEDICARE | LOC: M RAD 08:23 | PROVIDERS: ATTEND Internal Medicine Nephrology | DX: N18.4 Chronic kidney disease, stage 4 (severe) (principal); I70.1 Atherosclerosis of renal artery; N28.1 Cyst of kidney, acquired ==

== ENCOUNTER → 2024-01-31 | Outpatient (CLI) | payer MEDICARE | LOC: M PLAIMG 14:20 | PROVIDERS: ATTEND Internal Medicine Pulmonary Disease | DX: R91.8 Other nonspecific abnormal finding of lung field (principal); R91.1 Solitary pulmonary nodule ==

== ENCOUNTER → 2024-09-24 | Outpatient (REF) ==
[~2024-09-24] MED LIST changes: +BLOO-308 XX; -CVS1KIT XX
[2024-09-24 09:11] LABS: HEMOGLOBIN A1c 5.5 % (4.0-6.0)
[2024-09-24 09:25] LABS: ALBUMIN 3.1 G/DL (3.2-5.2); CALCIUM LEVEL 8.7 MG/DL (8.3-10.6); CHOLESTEROL RISK RATIO 2.98 (<5); CREATININE FOR GFR 1.67 MG/DL (0.55-1.30); GLOMERULAR FILTRATION RATE 31.4 (>39); HDL CHOLESTEROL 38.5 MG/DL (>40); LDL CHOLESTEROL 49.7 MG/DL (<100); MAGNESIUM LEVEL 1.6 MG/DL (1.8-2.4); NON-HDL-C 76.5 MG/DL; PHOSPHORUS LEVEL 4.1 MG/DL (2.4-5.1); POTASSIUM SERUM 4.9 MMOL/L (3.5-5.1); PTH INTACT 72.1 PG/ML (18.5-88.0)
[2024-09-24 09:27] LABS: FOLATE 5.96 NG/ML (>5.4)
== END ==
LOC: SKLAB2 06:38
PROVIDERS: ATTEND Internal Medicine
DX: N18.9 Chronic kidney disease, unspecified (principal)

== ENCOUNTER → 2024-12-29 | Outpatient (CLI) | payer MEDICARE | LOC: M PLARAD 14:29 | PROVIDERS: ATTEND Internal Medicine Pulmonary Disease | DX: R91.8 Other nonspecific abnormal finding of lung field (principal) | CPT/HCPCS: 78815; A9552 ==

== ENCOUNTER → 2025-01-28 | Outpatient (CLI) | payer MEDICARE ==
[~2025-01-28] MED LIST changes: +BUPR-71 PO; +CARB25TA9 PO; +CITA10TA7 PO; +IPRA0.00 INH; +LOSA50TA28 PO; +TRAZ-189 PO
== END ==
LOC: M ONCR 13:32
PROVIDERS: ATTEND General Practice
DX: C34.12 Malignant neoplasm of upper lobe, left bronchus or lung (principal); F17.218 Nicotine dependence, cigarettes, with other nicotine-induced disorders; R29.6 Repeated falls; Z80.49 Family history of malignant neoplasm of other genital organs; Z80.42 Family history of malignant neoplasm of prostate; Z80.1 Family history of malignant neoplasm of trachea, bronchus and lung; Z79.82 Long term (current) use of aspirin; Z79.84 Long term (current) use of oral hypoglycemic drugs; Z79.899 Other long term (current) drug therapy

== ENCOUNTER → 2025-02-24 | Outpatient (RCR) | payer MEDICARE | LOC: M ONCR 02-03 07:46 | PROVIDERS: ATTEND General Practice | DX: Z51.0 Encounter for antineoplastic radiation therapy (principal); C34.12 Malignant neoplasm of upper lobe, left bronchus or lung ==

== ENCOUNTER 2025-02-27 09:37 | Outpatient (RCR) | payer MEDICARE | END 2025-03-27 | LOC: M ONCR 09:37 | PROVIDERS: ATTEND General Practice | DX: Z51.0 Encounter for antineoplastic radiation therapy (principal); C34.12 Malignant neoplasm of upper lobe, left bronchus or lung ==

== ENCOUNTER → 2025-05-11 | Outpatient (CLI) | payer MEDICARE ==
[~2025-05-11] MED LIST changes: +ISOVUE-370 76% 100 ML VIAL As Ordered ONE
== END ==
LOC: M RAD 16:56
PROVIDERS: ATTEND General Practice
DX: C34.12 Malignant neoplasm of upper lobe, left bronchus or lung (principal)
CPT/HCPCS: 71260; 82565; Q9967

== ENCOUNTER → 2025-05-27 | Outpatient (CLI) | payer MEDICARE ==
[~2025-05-27] MED LIST changes: -ISOVUE-370 76% 100 ML VIAL As Ordered ONE
== END ==
LOC: M ONCR 10:20
PROVIDERS: ATTEND General Practice
DX: C34.12 Malignant neoplasm of upper lobe, left bronchus or lung (principal); R91.1 Solitary pulmonary nodule; F17.218 Nicotine dependence, cigarettes, with other nicotine-induced disorders; Z92.3 Personal history of irradiation; Z79.82 Long term (current) use of aspirin; Z79.899 Other long term (current) drug therapy